=== PATIENT | male | born 1985 ===

== ENCOUNTER 2024-11-15 07:12 | Inpatient (IN) | payer OTHER, SELFPAY ==
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
[2024-11-15 07:32] VITALS: BP 146/96; PULSE 107; RESP 16; TEMP 36.1; O2SAT 96; BMI 33.4
--- NOTE | 2024-11-15 07:33 | MHC.EDTECH ---
Belonging Secured by this tech. There is 1 Patient Belonging bag in Pod locker #9
[2024-11-15 08:12] LABS: Appearance Urine Clear; Glucose Urine UA Negative (Negative); PH 5.5 (5.0-9.0); Specific Gravity - Urine 1.025 (1.005-1.025)
[2024-11-15 08:23] LABS: Cannabinoid Screen Urine Not Detected (Not Detect)
[2024-11-15 08:40] LABS: MANUAL DIFF FLAG NO
[2024-11-15 08:42] LABS: Hematocrit 46.0 % (42.0-52.0); Hemoglobin 16.4 g/dl (14.0-18.0); Imm Gran Abs Auto 0.05 X10*3/uL (0.00-0.03); Imm Gran Pct Auto 0.7 % (0.0-0.4); Lymphocytes Absolute Auto 2.2 X10*3/uL (1.2-4.9); Mean Corpuscular HGB Conc 35.7 g/dl (31.0-36.0); Mean Corpuscular Hemoglobin 30.7 pg (27.0-33.0); Mean Corpuscular Volume 86.0 fL (80.0-98.0); NRBC Abs Auto 0.000 X10*3/uL (0.0-0.012); NRBC Pct Auto 0.0 /100WBC (0.0-0.2); Platelet Count 321 X10*3/uL (160-400); Red Blood Count 5.35 X10*6/uL (4.60-5.80); White Blood Count 7.1 X10*3/uL (4.8-10.8)
[2024-11-15 09:02] LABS: Alanine Aminotransferase 68 U/L (0-40); Albumin Level 4.8 g/dL (3.5-5.0); Alkaline Phosphatase 77 U/L (39-117); Anion Gap 18 (12-20); Aspartate Amino Transferase 41 U/L (5-37); Blood Urea Nitrogen 14 mg/dL (9-16); Calcium 9.0 mg/dL (8.4-10.2); Carbon Dioxide 24 mmol/L (22-29); Chloride 106 mmol/L (96-108); Creatinine Clr Calc Pharmacy 109.1; Estimated Glomerular Filt Rate > 60; Potassium 3.9 mmol/L (3.3-5.1); Sodium 144 mmol/L (135-145); Total Protein 7.6 g/dL (6.5-8.0)
--- NOTE | 2024-11-15 09:19 | MHC.CARE ---
Pt meets the criteria for IPLOC and is on a Section 12a. Pt is voluntary for TX however. ED provider in agreement.
--- NOTE | 2024-11-15 09:40 | ECG_ITS ---
Test Reason : CHECK PROLONGED QT Blood Pressure : */* mmHG Vent. Rate : 90 BPM Atrial Rate : 90 BPM P-R Int : 168 ms QRS Dur : 94 ms QT Int : 358 ms P-R-T Axes : 49 -22 7 degrees QTcB Int : 437 ms Normal sinus rhythm Normal ECG No previous ECGs available Referred By: Suyapa Squires Electronically Signed By: ZHANE ALEXANDER MD
--- NOTE | 2024-11-15 11:43 | PC.NURSE ---
Called [facility] pharmacy in [place], [place] on [address] they are having problems with their phones left message for a call back.
--- NOTE | 2024-11-15 13:08 | PC.NURSE ---
Patient is still nauseas junior BARAHONA ordered benadryl and reglan. Zofran given earlier
[2024-11-15 14:16] VITALS: BP 134/89; PULSE 108; RESP 16; TEMP 36.2; O2SAT 95; BMI 31.3
--- NOTE | 2024-11-15 14:57 | P.CONHOSP_ITS ---
History of Present Illness Data of Consult Service Date: 11/15/24 Primary Care Provider: None Physician HPI Reason for consult: Medical management 39-year-old male with a past medical history of depression presented to the ED with suicidal ideation with plans to hang himself with a belt. Now admitted here for further care and treatment. He denies any significant past medical history. His blood work was within normal limits, no electrolyte imbalances no evidence of kidney or liver injury, no leukocytosis, no anemia. Urine without evidence of infection, tox screen negative. Patient admits to drinking a pt of liquor prior to ED visit, his alcohol level was 262. On exam he has no medical concerns. Review of Systems 2 Review of Systems: Denies any shortness of breath, chest pain, palpitations, dizziness, lightheadedness, headaches, dysuria, abdominal pain or discomfort, nausea, vomiting or diarrhea. PMFSH Social History Patient Tobacco Use Status: Never used Tobacco Advance Directives: No Advance Directives Information Provided: Yes Nutrition Risks: No Nutritional Risk Meds Allergies Allergy/AdvReac Type Severity Reaction Status Date / Time No Known Allergies Allergy Verified 11/15/24 07:38 Active Medications: Current Medications Acetaminophen (Acetaminophen 325 Mg Tablet) 650 mg PO Q6H PRN PRN Reason: Headache/Pain, Scale 1-10 Al Hydroxide/Mg Hydroxide (Magnesium Hydrox/Alum Hydrox 30 Ml Oral.Susp) 30 ml PO Q6H PRN PRN Reason: Heartburn/Nausea Hydroxyzine HCl (Hydroxyzine Hcl 25 Mg Tablet) 25 mg PO Q6H PRN PRN Reason: mild anxiety Lorazepam (Lorazepam 1 Mg Tablet) 1 mg PO Q2H PRN PRN Reason: CIWA 8-11 Lorazepam (Lorazepam 1 Mg Tablet) 2 mg PO Q2H PRN PRN Reason: CIWA 12-15 Lorazepam (Lorazepam 1 Mg Tablet) 3 mg PO Q2H PRN PRN Reason: CIWA > 15, and call Magnesium Hydroxide (Milk Of Magnesia 30 Ml Oral.Susp) 30 ml PO DAILY PRN PRN Reason: Constipation Nicotine Polacrilex (Nicotine Polacrilex 2 Mg Gum) 4 mg BUCCAL Q2H PRN PRN Reason: Nicotine Cravings Thiamine HCl (Thiamine Hcl 100 Mg Tablet) 100 mg PO DAILY AILYN Trazodone HCl (Trazodone Hcl 50 Mg Tablet) 50 mg PO BEDTIME MRX1 PRN PRN Reason: Insomnia Home Medications ?Medication ?Instructions ?Recorded ?Confirmed ?Last Taken ?Type Wellbutrin XL 300 mg PO 11/15/24 Unknown History Physical Exam 2 Vital Signs and Narrative: Vital Signs: Last Vital Signs Temp 97.1 F 11/15/24 14:16 Pulse 108 H 11/15/24 14:16 Resp 16 11/15/24 14:16 BP 134/89 11/15/24 14:16 Pulse Ox 95 11/15/24 14:16 O2 Del Method Room Air 11/15/24 14:16 BMI result Body Mass Index 31.3 CONST: Alert and oriented, in NAD. Well nourished HEENT: Normocephalic, atraumatic, MMM, Eyes clear, Neck supple RESP: Lungs clear, RRR even and regular HEART:,RRR, S1, S2. No edema GI:Abdomen Soft NT, ND. + BS times four :Deferred SKIN: Warm dry and intact, no visible lesions or rashes NEURO:CN II-XII Intact bilaterally, Sensation intact. Speech clear PSYCH: Normal affect Results Labs 11/15/24 08:36 11/15/24 08:36 Labs: Laboratory Results - last 24 hr 11/15/24 11/15/24 08:00 08:36 MCV 86.0 MCH 30.7 MCHC 35.7 RDW 12.6 Plt Count 321 MPV 9.0 L Immature Gran % (Auto) 0.7 H Neut % (Auto) 59.1 Lymph % (Auto) 31.2 [place] % (Auto) 7.7 Eos % (Auto) 0.6 Baso % (Auto) 0.7 Lymph # (Auto) 2.2 [place] # (Auto) 0.6 Eos # (Auto) 0.0 Baso # (Auto) 0.1 Abs Immat Gran (auto) 0.05 H Absolute Neuts (auto) 4.2 Absolute Nucleated RBC 0.000 Nucleated RBC % (auto) 0.0 Anion Gap 18 Estim Creat Clear Calc 109.1 Estimated GFR > 60 Random Glucose 117 H Calcium 9.0 Total Bilirubin 0.4 AST 41 H ALT 68 H Alkaline Phosphatase 77 Total Protein 7.6 Albumin 4.8 Urine Color Yellow Urine Appearance Clear Urine pH 5.5 Ur Specific [place] 1.025 Urine Protein Trace Urine Glucose (UA) Negative Urine Ketones Trace Urine Blood Negative Urine Nitrite Negative Ur Leukocyte Esterase Negative Urine Opiates Screen Not Detected Ur Buprenorphine Scrn Not Detected Ur Oxycodone Screen Not Detected Urine Methadone Screen Not Detected Urine Fentanyl Screen Not Detected Ur Barbiturates Screen Not Detected Ur Phencyclidine Scrn Not Detected Ur Amphetamines Screen Not Detected U Benzodiazepines Scrn Not Detected Urine Cocaine Screen Not Detected U Marijuana (THC) Screen Not Detected Ethyl Alcohol 262 Assessment and Plan (1) Suicidal ideation: Status: Acute Plan 39-year-old male with no significant past medical history presented to the ED with increased depression and plans to hang himself with a belt. He is admitted here for mood stabilization Depression with suicidal ideation Treatment per psychiatric team Thank you for allowing me to participate in the care of this patient. Will follow as needed, please notify medical provider with any changes in condition or concerns.
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
[2024-11-15 20:00] VITALS: BP 135/74; PULSE 114; RESP 16; TEMP 37.3; O2SAT 95
[2024-11-16 07:00] VITALS: BMI 31.3
[2024-11-16 07:20] VITALS: BP 120/90; PULSE 103; RESP 16; TEMP 36.2; O2SAT 96
[2024-11-16 08:00] VITALS: BP 120/90; PULSE 103; RESP 16; TEMP 36.2; O2SAT 98
[2024-11-16 08:18] LABS: Alanine Aminotransferase 70 U/L (0-40); Albumin Level 4.9 g/dL (3.5-5.0); Alkaline Phosphatase 83 U/L (39-117); Anion Gap 15 (12-20); Aspartate Amino Transferase 51 U/L (5-37); Blood Urea Nitrogen 15 mg/dL (9-16); Calcium 9.8 mg/dL (8.4-10.2); Carbon Dioxide 28 mmol/L (22-29); Chloride 102 mmol/L (96-108); Cholesterol 134 mg/dL (<200); Creatinine Clr Calc Pharmacy 101.7; Estimated Glomerular Filt Rate > 60; HDL Cholesterol 35 mg/dL (>40); Potassium 3.9 mmol/L (3.3-5.1); Sodium 141 mmol/L (135-145); Total Protein 7.8 g/dL (6.5-8.0); Triglycerides 287 mg/dL (<150)
[2024-11-16 08:19] LABS: Hemoglobin A1C 148.9463 umol/L; Total Hemoglobin (HGBA1C) 4347.8968 umol/L
--- NOTE | 2024-11-16 08:50 | HO.PSYADMNOT ---
HPI Date of Service: 11/16/24 Chief Complaint: SI Sources of Information: patient interviewed, chart reviewed and crisis/core team assessment reviewed HPI Subjective Notes: Herrera Warning and Conditional Voluntary Narrative: Patient is a 30-year-old male with history of MDD who self presented to ER due to suicidal ideation with a plan to hang himself secondary to increased depression. Per crisis report, patient self presented to ER with his mother. He endorsed suicidal ideation with a plan to hang himself with a belt. Denied HI/VH/AH. He reports 1 prior psychiatric admission in 2017 when he had thoughts of self-harm. History of 2 prior suicide attempts via hanging in 2013 and 2015. He reports he did not tell anyone to receive treatment at that time. Patient reports he stopped taking Wellbutrin 2 days ago and also had a break-up with his girlfriend this morning. He does not identify either of those as precipitants. He reports sleep and appetite are fair. Patient has therapist via telehealth through [employer]. He does not have a medication prescriber. Denies history of PHP admissions. He reports alcohol consumption has been increased recently and has been working with his therapist on this. He denies any other substance use. During admission assessment, patient presents alert and oriented x3. Calm and cooperative. Patient reports feeling depressed; patient stated, I have a general feeling of giving up and not wanting to continue. I was considering killing myself so I came to get help . Patient reports there was no specific trigger that he can think of. He currently denies SI/HI/VH/AH. He reports feeling indifferent about his recent break-up does not feel like this was a precipitant. Patient reports history of 1 prior inpatient psychiatric hospitalization in 2017. He does not have outpatient psychiatric prescriber; however he does have a therapist via telehealth. Patient reports history of taking Wellbutrin and believes it was beneficial. He reports he has not taken it in months due to losing insurance and he was starting to feel better. Patient is requesting to be restarted on Wellbutrin. He reports poor appetite. Patient reports he has been drinking a pt of alcohol for the last 3 days. Denies any other substance use. Alcohol level 262 on arrival. U tox negative for any other substance. Past Psychiatric History: He reports 1 prior psychiatric admission in 2017 when he had thoughts of self-harm. History of 2 prior suicide attempts via hanging in 2013 and 2015. He reports he did not tell anyone to receive treatment at that time. Does not have outpatient psychiatric prescriber. Therapist via telehealth. History of taking Wellbutrin. History of SIB via cutting in 2017. Medical Evaluation Reviewed: Yes PMFSH Family History: Mother: Depression Social History: Lives with ex-. . Two kids(12, 9 y/o). Some college. Works full-time in manufacturing. Substance History: Patient reports drinking a pt of alcohol daily for the last 3 days. Denies any other substance use. Trauma History: Yes Diagnostics Vital Signs (24Hr): Vital Signs - 24 hr 11/15/24 14:16 11/15/24 20:00 11/16/24 07:20 Temperature 97.1 F 99.2 F 97.2 F Pulse Rate 108 H 114 H 103 H Respiratory Rate 16 16 16 Blood Pressure 134/89 135/74 120/90 H Pulse Oximetry 95 95 96 Oxygen Delivery Method Room Air Room Air Room Air 11/16/24 08:00 Temperature 97.2 F Pulse Rate 103 H Respiratory Rate 16 Blood Pressure 120/90 H Pulse Oximetry 98 Oxygen Delivery Method Room Air BMI result Body Mass Index 31.3 Labs 11/15/24 08:36 11/16/24 07:32 Labs: Laboratory Results - last 48 hr 11/15/24 11/15/24 11/16/24 08:00 08:36 07:32 WBC 7.1 RBC 5.35 Hgb 16.4 Hct 46.0 MCV 86.0 MCH 30.7 MCHC 35.7 RDW 12.6 Plt Count 321 MPV 9.0 L Immature Gran % (Auto) 0.7 H Neut % (Auto) 59.1 Lymph % (Auto) 31.2 [place] % (Auto) 7.7 Eos % (Auto) 0.6 Baso % (Auto) 0.7 Lymph # (Auto) 2.2 [place] # (Auto) 0.6 Eos # (Auto) 0.0 Baso # (Auto) 0.1 Abs Immat Gran (auto) 0.05 H Absolute Neuts (auto) 4.2 Absolute Nucleated RBC 0.000 Nucleated RBC % (auto) 0.0 Sodium 144 141 Potassium 3.9 3.9 Chloride 106 102 Carbon Dioxide 24 28 Anion Gap 18 15 BUN 14 15 Creatinine 1.04 1.08 Estim Creat Clear Calc 109.1 101.7 Estimated GFR > 60 > 60 Random Glucose 117 H 112 Estimat Average Glucose 105 Hemoglobin A1c % 5.3 Calcium 9.0 9.8 D Total Bilirubin 0.4 1.3 H AST 41 H 51 H ALT 68 H 70 H Alkaline Phosphatase 77 83 Total Protein 7.6 7.8 Albumin 4.8 4.9 Triglycerides 287 H Cholesterol 134 LDL Cholesterol, Calc 42 HDL Cholesterol 35 L Urine Color Yellow Urine Appearance Clear Urine pH 5.5 Ur Specific [place] 1.025 Urine Protein Trace Urine Glucose (UA) Negative Urine Ketones Trace Urine Blood Negative Urine Nitrite Negative Ur Leukocyte Esterase Negative Urine Opiates Screen Not Detected Ur Buprenorphine Scrn Not Detected Ur Oxycodone Screen Not Detected Urine Methadone Screen Not Detected Urine Fentanyl Screen Not Detected Ur Barbiturates Screen Not Detected Ur Phencyclidine Scrn Not Detected Ur Amphetamines Screen Not Detected U Benzodiazepines Scrn Not Detected Urine Cocaine Screen Not Detected U Marijuana (THC) Screen Not Detected Ethyl Alcohol 262 Meds/Allergies Meds Home Medications ?Medication ?Instructions ?Recorded ?Confirmed ?Type Wellbutrin XL 300 mg PO DAILY 11/15/24 11/16/24 History Allergies Allergies Allergy/AdvReac Type Severity Reaction Status Date / Time No Known Allergies Allergy Verified 11/15/24 07:38 Mental Status Exam Mental Status Exam Patient Appearance: Well Grooomed Patient Orientation: Person, Place, Time and Situation Level of Consciousness: Awake and Alert Patient Behavior: Appropriate, Cooperative and Good Eye Contact Mood Description: Depressed Affect Description: Calm Ability to Follow Directions: Good Speech Pattern: Clear Memory Description: Intact Hallucinations: None Delusions: Not Present Thought Process: Intact and Goal Oriented Thought Content: positive for Intact Assessment & Plan Assessment & Plan (1) MDD (major depressive disorder), recurrent episode: Status: Acute Code(s): F33.9 - Major depressive disorder, recurrent, unspecified (2) PTSD (post-traumatic stress disorder): Status: Acute Code(s): F43.10 - Post-traumatic stress disorder, unspecified (3) Alcohol use disorder: Status: Acute Code(s): F10.90 - Alcohol use, unspecified, uncomplicated Plan Patient is a 30-year-old male with history of MDD who self presented to ER due to suicidal ideation with a plan to hang himself secondary to increased depression. Plan: CV 15 minute safety checks CIWA protocol Obtain collateral Start: Wellbutrin XL 150mg PO daily Referral to outpatient prescriber Encourage groups Discharge planning Patient educated on: diagnosis and medication risk/benefits Reason for continued inpatient stay Substantial Risk for: med/psych decompensation Statement Statement: I have reviewed the history and physical and performed a pertinent examination on my patient. No changes have occurred unless specified. If the History and Physical was not performed prior to admission, the Hospitalist's service will be consulted for completing the admission physical. Time Spent With Patient Time: Total time managing care of this patient today _60___ minutes.
[2024-11-16] MEDS: Flu Vacc TS2025-26(6mo up)/PF 0.5 ML SYRINGE IM (11:18)
[2024-11-16] MEDS: buPROPion HCl XL 150 MG TAB.ER.24H PO (16:37)
[2024-11-16 16:39] VITALS: BP 125/88; PULSE 99
[2024-11-16 20:00] VITALS: BP 141/84; PULSE 93; RESP 16; TEMP 37; O2SAT 95
[2024-11-17 07:48] VITALS: BP 145/97; PULSE 87; RESP 20; TEMP 36.2; O2SAT 99
[2024-11-17] MEDS: buPROPion HCl XL 150 MG TAB.ER.24H PO (08:24)
--- NOTE | 2024-11-17 08:34 | HO.PSYCHPN ---
Subjective Subjective Date of Service: 11/17/24 Reason For Visit: SI Subjective Notes: Conditional Voluntary Interim History: Active on unit. social with peers. attending groups. KELSEA SAUNDERS'ghassan; pt denies withdrawal symptoms. Patient reports feeling more anxious than depressed today; pt stated, the suicidal thoughts went away this morning. I miss being home . denies SI/HI/VH/AH. Per nursing, slept 7 hours last night. Continue tx plan. Medication Compliance: Yes Side effects from medications: No Attending Groups: Yes Mental Status Exam Mental Status Exam Narrative: Pt is alert and oriented; behavior is cooperative and calm; dressed in casual attire; mood is described as anxious ; eye contact appropriate; Speech is normal rate, volume and not pressured; thought process is organized; Thought content is on tx; denies SI/HI/VH/AH. Diagnostics Vital Signs (24Hr): Vital Signs - 24 hr 11/16/24 16:39 11/16/24 20:00 11/17/24 07:48 Temperature 98.6 F 97.2 F Pulse Rate 99 93 87 Respiratory Rate 16 20 Blood Pressure 125/88 141/84 H 145/97 H Pulse Oximetry 95 99 Oxygen Delivery Method Room Air Room Air BMI result Body Mass Index 31.3 Labs 11/15/24 08:36 11/16/24 07:32 Labs: Laboratory Results - last 48 hr 11/15/24 11/16/24 08:36 07:32 WBC 7.1 RBC 5.35 Hgb 16.4 Hct 46.0 MCV 86.0 MCH 30.7 MCHC 35.7 RDW 12.6 Plt Count 321 MPV 9.0 L Immature Gran % (Auto) 0.7 H Neut % (Auto) 59.1 Lymph % (Auto) 31.2 [place] % (Auto) 7.7 Eos % (Auto) 0.6 Baso % (Auto) 0.7 Lymph # (Auto) 2.2 [place] # (Auto) 0.6 Eos # (Auto) 0.0 Baso # (Auto) 0.1 Abs Immat Gran (auto) 0.05 H Absolute Neuts (auto) 4.2 Absolute Nucleated RBC 0.000 Nucleated RBC % (auto) 0.0 Sodium 144 141 Potassium 3.9 3.9 Chloride 106 102 Carbon Dioxide 24 28 Anion Gap 18 15 BUN 14 15 Creatinine 1.04 1.08 Estim Creat Clear Calc 109.1 101.7 Estimated GFR > 60 > 60 Random Glucose 117 H 112 Estimat Average Glucose 105 Hemoglobin A1c % 5.3 Calcium 9.0 9.8 D Total Bilirubin 0.4 1.3 H AST 41 H 51 H ALT 68 H 70 H Alkaline Phosphatase 77 83 Total Protein 7.6 7.8 Albumin 4.8 4.9 Triglycerides 287 H Cholesterol 134 LDL Cholesterol, Calc 42 HDL Cholesterol 35 L Ethyl Alcohol 262 Medications Medications Current Medications Acetaminophen (Acetaminophen 325 Mg Tablet) 650 mg PO Q6H PRN PRN Reason: Headache/Pain, Scale 1-10 Al Hydroxide/Mg Hydroxide (Magnesium Hydrox/Alum Hydrox 30 Ml Oral.Susp) 30 ml PO Q6H PRN PRN Reason: Heartburn/Nausea Bupropion HCl (Bupropion Hcl Xl 150 Mg Tab.Er.24h) 150 mg PO DAILY [facility] Last Admin: 11/17/24 08:24 Dose: 150 mg Hydroxyzine HCl (Hydroxyzine Hcl 25 Mg Tablet) 25 mg PO Q6H PRN PRN Reason: mild anxiety Lorazepam (Lorazepam 1 Mg Tablet) 1 mg PO Q2H PRN PRN Reason: CIWA 8-11 Last Admin: 11/16/24 08:58 Dose: 1 mg Lorazepam (Lorazepam 1 Mg Tablet) 2 mg PO Q2H PRN PRN Reason: CIWA 12-15 Lorazepam (Lorazepam 1 Mg Tablet) 3 mg PO Q2H PRN PRN Reason: CIWA > 15, and call Magnesium Hydroxide (Milk Of Magnesia 30 Ml Oral.Susp) 30 ml PO DAILY PRN PRN Reason: Constipation Nicotine Polacrilex (Nicotine Polacrilex 2 Mg Gum) 4 mg BUCCAL Q2H PRN PRN Reason: Nicotine Cravings Thiamine HCl (Thiamine Hcl 100 Mg Tablet) 100 mg PO DAILY [facility] Last Admin: 11/17/24 08:24 Dose: 100 mg Trazodone HCl (Trazodone Hcl 50 Mg Tablet) 50 mg PO BEDTIME MRX1 PRN PRN Reason: Insomnia Last Admin: 11/15/24 20:54 Dose: 50 mg Allergies Allergies Allergy/AdvReac Type Severity Reaction Status Date / Time No Known Allergies Allergy Verified 11/15/24 07:38 Assessment & Plan Assessment & Plan (1) MDD (major depressive disorder), recurrent episode: Status: Acute Code(s): F33.9 - Major depressive disorder, recurrent, unspecified (2) PTSD (post-traumatic stress disorder): Status: Acute Code(s): F43.10 - Post-traumatic stress disorder, unspecified (3) Alcohol use disorder: Status: Acute Code(s): F10.90 - Alcohol use, unspecified, uncomplicated Plan Patient is a 30-year-old male with history of MDD who self presented to ER due to suicidal ideation with a plan to hang himself secondary to increased depression. Plan: CV 15 minute safety checks CIWA protocol Obtain collateral Start: Wellbutrin XL 150mg PO daily Referral to outpatient prescriber Encourage groups Discharge planning 11/17: Active on unit. social with peers. attending groups. CIWA DC'd; pt denies withdrawal symptoms. Patient reports feeling more anxious than depressed today; pt stated, the suicidal thoughts went away this morning. I miss being home . denies SI/HI/VH/AH. Per nursing, slept 7 hours last night. Continue tx plan. Patient educated on: diagnosis, medication risk/benefits and therapeutic strategies Reason for continued inpatient stay Substantial Risk for: med/psych decompensation Time Spent With Patient Time: Total time managing care of this patient today _20___ minutes.
--- NOTE | 2024-11-17 14:27 | MHC.CLN ---
CONSULT REPORTS 10# WEIGHT LOSS X ONE WEEK DUE TO DECREASED APPETITE. PATIENT WITH SI PLUS ETOH UPON ADM. NO PRIOR WEIGHT HX VIEWED. DIET RX REGULAR. BMI=31.4, OBESE. NO ADDITIONAL NUTRITION INTERVENTIONS AT THIS TIME. PLEASE CONSULT RD IF PATIENT WITH POOR PO DURING ADM.
--- NOTE | 2024-11-17 14:29 | MHC.RECOVRN ---
Pt is 39-y/o male who presented to the ED reporting SI worsened by recent alcohol binge. CARE Team was consulted and pt was determined to be inpatient psych level of care. Pt thus was admitted to M3 for further management. Met with pt in 324 after receiving an addiction consult for + [facility] C to discuss alcohol use and recovery supports & options. Upon approach pt is calm w/flat affect, oriented and cooperative. Speech is coherent & thought process is logical. Pt stated he typically only consumes alcohol on the weekends 2-3 drinks. However due to no apparent reason pt had a recent binge from Wednesday --> Wednesday where he drank 1 pint of vodka or rum QD. No precipitating triggers identified as pt was unable to recall any recent stressors. Pt added that due to the binge drinking I started feeling suicidal. When asked about withdrawal symptoms pt denied a hx of seizures or delirium tremens. No acute withdrawal noted or reported at this time. Pt reports feeling anxious at baseline. Pt denied hx of AUD or JIM-related treatment. During the assessment low-risk drinking guidelines were reviewed. Discussed harm-reduction strategies such as setting a personal limit of no more than 2 drinks per occasion, alternating alcohol with water, pacing intake, and eating food prior to an during drinking. Pt acknowledged the medical risks of heavy or daily use as well as its impact to poor mental health outcomes. Written materials provided & reviewed with pt such as information on nutrition, hydration, and vitamin supplementation. Based on motivational interviewing, pt is open to recommendations and interested in harm reduction rather than immediate abstinence. Treatment options were discussed including SOREN, and inpatient & outpatient treatment (ATS, CSS, TSS, IOP). Pt provided with list of facilities providing tx for AUD. Pt showed particular interest in SOREN for harm-reduction and agreed to discuss SOREN initiation with the Addiction Medicine provider. Provider was made aware and outpatient JIM appointment was made at the [facility] for tx. Pt verbalized understanding of risk reduction strategies & tx options. No other questions or concerns offered at this time. Discussed with Pooja Hsieh NP.
--- NOTE | 2024-11-17 14:55 | MHC.RECOVRN ---
Pt is 39-y/o male who presented to the ED reporting SI worsened by recent alcohol binge. CARE Team was consulted and pt was determined to be inpatient psych level of care. Pt thus was admitted to M3 for further management. Met with pt in 324 after receiving an addiction consult for + [facility] C to discuss alcohol use and recovery supports & options. Upon approach pt is calm w/flat affect, oriented and cooperative. Speech is coherent & thought process is logical. Pt stated he typically only consumes alcohol on the weekends 2-3 drinks. However due to no apparent reason pt had a recent binge from Wednesday --> Wednesday where he drank 1 pint of vodka or rum QD. No precipitating triggers identified as pt was unable to recall any recent stressors. Pt added that due to the binge drinking I started feeling suicidal. When asked about withdrawal symptoms pt denied a hx of seizures or delirium tremens. No acute withdrawal noted or reported at this time. Pt reports feeling anxious at baseline. Pt denied hx of AUD or JIM-related treatment. During the assessment low-risk drinking guidelines were reviewed. Discussed harm-reduction strategies such as setting a personal limit of no more than 2 drinks per occasion, alternating alcohol with water, pacing intake, and eating food prior to an during drinking. Pt acknowledged the medical risks of heavy or daily use as well as its impact to poor mental health outcomes. Written materials provided & reviewed with pt such as information on nutrition, hydration, and vitamin supplementation. Based on motivational interviewing, pt is open to recommendations and interested in harm reduction rather than immediate abstinence. Treatment options were discussed including SOREN, and inpatient & outpatient treatment (ATS, CSS, TSS, IOP). Pt provided with list of facilities providing tx for AUD. Pt showed particular interest in SOREN for harm-reduction and agreed to discuss SOREN initiation with the Addiction Medicine provider. Pt verbalized understanding of risk reduction strategies & tx options. No other questions or concerns offered at this time. Discussed with Pooja Hsieh NP.
--- NOTE | 2024-11-17 15:58 | HO.ADDICT_ITS ---
History of Present Illness Date of Service: 11/17/2024 Chief Complaint: SI Reason for Consult: AUD Sources of Information: patient interviewed and chart reviewed HPI Narrative: Patient is a 39 year old male admitted to with suicidal ideation. Consult requested as patient reported increase in drinking. Initially seen by coal briquette machine operator, and at that time expressed interest in SOREN. Patient seen on M3. He is awake, alert, pleasant and engaged in interview. He reports long history of unhealthy drinking, with periods of abstaining in between. He states that most recently he had been drinking approx 6 beers daily after work, and prior to admission had been drinking about a pint of hard alcohol as well. He reports that drinking hard alcohol is not the norm for him and feels it was related to his worsening depression. States that he normally drinks alone at home. Denies any other substance use Reports mild withdrawal sx at admission -since resolved-and feels he has experienced mild withdrawal sx at home in the past Labs reviewed-liver enzymes elevated He reports that he is engaged in therapy, and feels that adding medication for AUD may be beneficial He feels that alcohol has been impacting his mental health overall, and would like to address that. Strong supports with family and friends. Past Psychiatric History: He reports 1 prior psychiatric admission in 2017 when he had thoughts of self-harm. History of 2 prior suicide attempts via hanging in 2013 and 2015. He reports he did not tell anyone to receive treatment at that time. Does not have outpatient psychiatric prescriber. Therapist via telehealth. History of taking Wellbutrin. History of SIB via cutting in 2017. Medical Evaluation Reviewed: Yes Review of Systems Constitutional: Reports as per HPI and Reports no additional constitutional complaints Diagnostics Vital Signs (24Hr): Vital Signs - 24 hr 11/16/24 16:39 11/16/24 20:00 11/17/24 07:48 Temperature 98.6 F 97.2 F Pulse Rate 99 93 87 Respiratory Rate 16 20 Blood Pressure 125/88 141/84 H 145/97 H Pulse Oximetry 95 99 Oxygen Delivery Method Room Air Room Air BMI result Body Mass Index 31.3 Labs 11/15/24 08:36 11/16/24 07:32 Labs: Laboratory Results - last 48 hr 11/16/24 07:32 Sodium 141 Potassium 3.9 Chloride 102 Carbon Dioxide 28 Anion Gap 15 BUN 15 Creatinine 1.08 Estim Creat Clear Calc 101.7 Estimated GFR > 60 Random Glucose 112 Estimat Average Glucose 105 Hemoglobin A1c % 5.3 Calcium 9.8 D Total Bilirubin 1.3 H AST 51 H ALT 70 H Alkaline Phosphatase 83 Total Protein 7.8 Albumin 4.9 Triglycerides 287 H Cholesterol 134 LDL Cholesterol, Calc 42 HDL Cholesterol 35 L Mental Status Exam Mental Status Exam Level of Consciousness: Awake and Appropriate Patient Behavior: Appropriate and Talkative Affect Description: Calm Speech Pattern: Clear Thought Process: Intact Thought Content: positive for Intact Judgement: Good Medications Medications Current Medications Acetaminophen (Acetaminophen 325 Mg Tablet) 650 mg PO Q6H PRN PRN Reason: Headache/Pain, Scale 1-10 Al Hydroxide/Mg Hydroxide (Magnesium Hydrox/Alum Hydrox 30 Ml Oral.Susp) 30 ml PO Q6H PRN PRN Reason: Heartburn/Nausea Bupropion HCl (Bupropion Hcl Xl 150 Mg Tab.Er.24h) 150 mg PO DAILY [facility] Last Admin: 11/17/24 08:24 Dose: 150 mg Hydroxyzine HCl (Hydroxyzine Hcl 25 Mg Tablet) 25 mg PO Q6H PRN PRN Reason: mild anxiety Magnesium Hydroxide (Milk Of Magnesia 30 Ml Oral.Susp) 30 ml PO DAILY PRN PRN Reason: Constipation Naltrexone HCl (Naltrexone Hcl 50 Mg Tablet) 25 mg PO DAILY [facility] Stop: 11/20/24 09:01 Naltrexone HCl (Naltrexone Hcl 50 Mg Tablet) 50 mg PO DAILY [facility] Nicotine Polacrilex (Nicotine Polacrilex 2 Mg Gum) 4 mg BUCCAL Q2H PRN PRN Reason: Nicotine Cravings Trazodone HCl (Trazodone Hcl 50 Mg Tablet) 50 mg PO BEDTIME MRX1 PRN PRN Reason: Insomnia Last Admin: 11/15/24 20:54 Dose: 50 mg Allergies Allergies Allergy/AdvReac Type Severity Reaction Status Date / Time No Known Allergies Allergy Verified 11/15/24 07:38 Assessment & Plan Assessment & Plan (1) Alcohol use disorder: Status: Acute Code(s): F10.90 - Alcohol use, unspecified, uncomplicated Assessment and Plan: * naltrexone 25mgx3 days then increase to 50mg QD. Discussed dosing, possible side effects and goals of treatment * has not seen PCP in some time, so may benefit from referral to [facility] (if open to it) to continue SOREN * coal briquette machine operator to check in on Wednesday Total time managing care of this patient today _30___ minutes. [facility] Social History Social History Household Members: None Housing: House Do you presently have visiting nurse or other home services: No Patient Tobacco Use Status: Never used Tobacco Currently Displaying Signs/Symptoms of Drug Intoxication Withdrawal: No Have you been hit, kicked, punched, or otherwise hurt by someone within the past year? If so, by whom?: No Do you feel safe in your current relationship?: No Current Relationship Is there a partner from a previous relationship who is making you feel unsafe now?: No Are you made to feel afraid or neglected: No Advance Directives: No Advance Directives Information Provided: Yes Do you have thoughts of harming others: None Do you have a plan to hurt others: No Plan Recently lost weight without trying: Yes How much weight loss: 2-13 pounds Eating poorly because of decreased appetite: Yes Nutrition screen score: 4 Nutrition Risks: No Nutritional Risk Poor oral hygiene: No service: No Sexual orientation: Straight/Heterosexual
[2024-11-17 21:20] VITALS: BP 136/88; PULSE 89; RESP 18; TEMP 36.8; O2SAT 97
[2024-11-18 08:19] VITALS: BP 134/86; PULSE 83; RESP 18; TEMP 36.2; O2SAT 98
[2024-11-18] MEDS: buPROPion HCl XL 150 MG TAB.ER.24H PO (08:21)
--- NOTE | 2024-11-18 10:58 | P.PNPSI_ITS ---
Subjective Subjective Date of Service: 11/18/24 Reason For Visit: SI Interim History: Patient was seen and discussed in rounds today. Records and plans were reviewed. He has been stable, social and engaged. CIWA was discontinued yesterday and he appears to be doing well. He states that he is not sleeping well and I increased his trazodone to 100 mg. No SI. No AVH. No other changes were made today Review of Systems Review of Systems Sleep Yes all other systems are reviewed and are negative Mental Status Exam Mental Status Exam Narrative: In today's visit he is alert, oriented and pleasant. Normal speech. Good eye contact. Affect is appropriate and open. No signs of acute psychosis. No AVH. No SI. Cognitively intact. Judgment intact Diagnostics Vital Signs (24Hr): Vital Signs - 24 hr 11/17/24 21:20 11/18/24 08:19 Temperature 98.2 F 97.2 F Pulse Rate 89 83 Respiratory Rate 18 18 Blood Pressure 136/88 134/86 Pulse Oximetry 97 98 Oxygen Delivery Method Room Air Room Air BMI result Body Mass Index 31.3 Labs 11/15/24 08:36 11/16/24 07:32 Medications Medications Current Medications Acetaminophen (Acetaminophen 325 Mg Tablet) 650 mg PO Q6H PRN PRN Reason: Headache/Pain, Scale 1-10 Al Hydroxide/Mg Hydroxide (Magnesium Hydrox/Alum Hydrox 30 Ml Oral.Susp) 30 ml PO Q6H PRN PRN Reason: Heartburn/Nausea Bupropion HCl (Bupropion Hcl Xl 150 Mg Tab.Er.24h) 150 mg PO DAILY ON LICENSE OF [facility] Last Admin: 11/18/24 08:21 Dose: 150 mg Hydroxyzine HCl (Hydroxyzine Hcl 25 Mg Tablet) 25 mg PO Q6H PRN PRN Reason: mild anxiety Magnesium Hydroxide (Milk Of Magnesia 30 Ml Oral.Susp) 30 ml PO DAILY PRN PRN Reason: Constipation Naltrexone HCl (Naltrexone Hcl 50 Mg Tablet) 25 mg PO DAILY ON LICENSE OF [facility] Stop: 11/20/24 09:01 Last Admin: 11/18/24 08:22 Dose: 25 mg Naltrexone HCl (Naltrexone Hcl 50 Mg Tablet) 50 mg PO DAILY ON LICENSE OF [facility] Nicotine Polacrilex (Nicotine Polacrilex 2 Mg Gum) 4 mg BUCCAL Q2H PRN PRN Reason: Nicotine Cravings Trazodone HCl (Trazodone Hcl 50 Mg Tablet) 50 mg PO BEDTIME MRX1 PRN PRN Reason: Insomnia Last Admin: 11/17/24 21:21 Dose: 50 mg Allergies Allergies Allergy/AdvReac Type Severity Reaction Status Date / Time No Known Allergies Allergy Verified 11/15/24 07:38 Assessment & Plan Assessment & Plan (1) Alcohol use disorder: Status: Acute Code(s): F10.90 - Alcohol use, unspecified, uncomplicated Assessment and Plan: * naltrexone 25mgx3 days then increase to 50mg QD. Discussed dosing, possible side effects and goals of treatment * has not seen PCP in some time, so may benefit from referral to [facility] (if open to it) to continue SOREN * burglar alarm inspector to check in on Wednesday * * 11/18: Continue current regimen and plans. Increase trazodone to 100 mg Patient educated on: medication risk/benefits Reason for continued inpatient stay Substantial Risk for: med/psych decompensation Time Spent With Patient Time: Total time managing care of this patient today ____ minutes.
[2024-11-18 19:15] VITALS: BP 133/93; PULSE 87; RESP 16; TEMP 36.3; O2SAT 98
[2024-11-18 21:00] VITALS: BP 137/91; PULSE 82
[2024-11-19 07:53] VITALS: BP 119/73; PULSE 83; RESP 18; TEMP 36.3; O2SAT 97
[2024-11-19] MEDS: buPROPion HCl XL 150 MG TAB.ER.24H PO (07:55)
--- NOTE | 2024-11-19 08:12 | P.PNPSI_ITS ---
Subjective Subjective Date of Service: 11/19/24 Reason For Visit: SI Subjective Notes: Conditional Voluntary Interim History: Patient was seen and discussed in rounds today. Records and plans were reviewed. He is doing fairly well and has been social and interactive. Today was sitting at a table, reading a book. Eating and sleeping adequately. No complaints or side effects. No SI. Slept better with the increase of trazodone. No changes were made today Review of Systems Review of Systems Yes all other systems are reviewed and are negative Mental Status Exam Mental Status Exam Narrative: In today's visit he is alert, oriented and pleasant. Normal speech. Good eye contact. Affect is appropriate and constricted. No signs of acute psychosis. No AVH. He is able to move all limbs. No gait abnormalities. No SI. Cognitively intact. Judgment intact Diagnostics Vital Signs (24Hr): Vital Signs - 24 hr 11/18/24 08:19 11/18/24 19:15 11/18/24 21:00 Temperature 97.2 F 97.4 F Pulse Rate 83 87 82 Respiratory Rate 18 16 Blood Pressure 134/86 133/93 H 137/91 H Pulse Oximetry 98 98 Oxygen Delivery Method Room Air Room Air 11/19/24 07:53 Temperature 97.4 F Pulse Rate 83 Respiratory Rate 18 Blood Pressure 119/73 Pulse Oximetry 97 Oxygen Delivery Method Room Air BMI result Body Mass Index 31.3 Labs 11/15/24 08:36 11/16/24 07:32 Medications Medications Current Medications Acetaminophen (Acetaminophen 325 Mg Tablet) 650 mg PO Q6H PRN PRN Reason: Headache/Pain, Scale 1-10 Al Hydroxide/Mg Hydroxide (Magnesium Hydrox/Alum Hydrox 30 Ml Oral.Susp) 30 ml PO Q6H PRN PRN Reason: Heartburn/Nausea Bupropion HCl (Bupropion Hcl Xl 150 Mg Tab.Er.24h) 150 mg PO DAILY [facility] Last Admin: 11/19/24 07:55 Dose: 150 mg Hydroxyzine HCl (Hydroxyzine Hcl 25 Mg Tablet) 25 mg PO Q6H PRN PRN Reason: mild anxiety Magnesium Hydroxide (Milk Of Magnesia 30 Ml Oral.Susp) 30 ml PO DAILY PRN PRN Reason: Constipation Naltrexone HCl (Naltrexone Hcl 50 Mg Tablet) 25 mg PO DAILY [facility] Stop: 11/20/24 09:01 Last Admin: 11/19/24 07:55 Dose: 25 mg Naltrexone HCl (Naltrexone Hcl 50 Mg Tablet) 50 mg PO DAILY [facility] Nicotine Polacrilex (Nicotine Polacrilex 2 Mg Gum) 4 mg BUCCAL Q2H PRN PRN Reason: Nicotine Cravings Trazodone HCl (Trazodone Hcl 100 Mg Tablet) 100 mg PO BEDTIME MRX1 PRN PRN Reason: Insomnia Last Admin: 11/18/24 21:32 Dose: 100 mg Allergies Allergies Allergy/AdvReac Type Severity Reaction Status Date / Time No Known Allergies Allergy Verified 11/15/24 07:38 Assessment & Plan Assessment & Plan (1) Alcohol use disorder: Status: Acute Code(s): F10.90 - Alcohol use, unspecified, uncomplicated Assessment and Plan: * naltrexone 25mgx3 days then increase to 50mg QD. Discussed dosing, possible side effects and goals of treatment * has not seen PCP in some time, so may benefit from referral to [facility] (if open to it) to continue SOREN * guest room attendant to check in on Wednesday * * 11/18: Continue current regimen and plans. Increase trazodone to 100 mg * 11/19: Continue current regimen and plans Reason for continued inpatient stay Substantial Risk for: med/psych decompensation Time Spent With Patient Time: Total time managing care of this patient today ____ minutes.
[2024-11-19 08:35] VITALS: BP 119/73; PULSE 83; RESP 18; TEMP 36.3; O2SAT 97
--- NOTE | 2024-11-19 10:39 | P.PNPSI_ITS ---
Subjective Subjective Date of Service: 11/19/24 Reason For Visit: SI Subjective Notes: Conditional Voluntary Interim History: Patient was seen and discussed in rounds today. Records and plans were reviewed. He continues to be fairly marginal in the milieu. He is somewhat social. Eating and sleeping adequately. Endorses anxiety and depression. No complaints or side effects. No SI. No changes were made today Review of Systems Review of Systems Yes all other systems are reviewed and are negative Mental Status Exam Mental Status Exam Narrative: In today's visit he is alert, oriented and pleasant. Normal speech. Good eye contact. Affect is appropriate and constricted. No signs of acute psychosis. No AVH. He is able to move all limbs. No gait abnormalities. No SI. Cognitively intact. Judgment intact Diagnostics Vital Signs (24Hr): Vital Signs - 24 hr 11/18/24 19:15 11/18/24 21:00 11/19/24 07:53 Temperature 97.4 F 97.4 F Pulse Rate 87 82 83 Respiratory Rate 16 18 Blood Pressure 133/93 H 137/91 H 119/73 Pulse Oximetry 98 97 Oxygen Delivery Method Room Air Room Air 11/19/24 08:35 Temperature 97.4 F Pulse Rate 83 Respiratory Rate 18 Blood Pressure 119/73 Pulse Oximetry 97 Oxygen Delivery Method Room Air BMI result Body Mass Index 31.3 Labs 11/15/24 08:36 11/16/24 07:32 Medications Medications Current Medications Acetaminophen (Acetaminophen 325 Mg Tablet) 650 mg PO Q6H PRN PRN Reason: Headache/Pain, Scale 1-10 Al Hydroxide/Mg Hydroxide (Magnesium Hydrox/Alum Hydrox 30 Ml Oral.Susp) 30 ml PO Q6H PRN PRN Reason: Heartburn/Nausea Bupropion HCl (Bupropion Hcl Xl 150 Mg Tab.Er.24h) 150 mg PO DAILY [facility] Last Admin: 11/19/24 07:55 Dose: 150 mg Hydroxyzine HCl (Hydroxyzine Hcl 25 Mg Tablet) 25 mg PO Q6H PRN PRN Reason: mild anxiety Magnesium Hydroxide (Milk Of Magnesia 30 Ml Oral.Susp) 30 ml PO DAILY PRN PRN Reason: Constipation Naltrexone HCl (Naltrexone Hcl 50 Mg Tablet) 25 mg PO DAILY [facility] Stop: 11/20/24 09:01 Last Admin: 11/19/24 07:55 Dose: 25 mg Naltrexone HCl (Naltrexone Hcl 50 Mg Tablet) 50 mg PO DAILY [facility] Nicotine Polacrilex (Nicotine Polacrilex 2 Mg Gum) 4 mg BUCCAL Q2H PRN PRN Reason: Nicotine Cravings Trazodone HCl (Trazodone Hcl 100 Mg Tablet) 100 mg PO BEDTIME MRX1 PRN PRN Reason: Insomnia Last Admin: 11/18/24 21:32 Dose: 100 mg Allergies Allergies Allergy/AdvReac Type Severity Reaction Status Date / Time No Known Allergies Allergy Verified 11/15/24 07:38 Assessment & Plan Assessment & Plan (1) Alcohol use disorder: Status: Acute Code(s): F10.90 - Alcohol use, unspecified, uncomplicated Assessment and Plan: * naltrexone 25mgx3 days then increase to 50mg QD. Discussed dosing, possible side effects and goals of treatment * has not seen PCP in some time, so may benefit from referral to [facility] (if open to it) to continue SOREN * underwriter solicitation director to check in on Wednesday * * 11/18: Continue current regimen and plans. Increase trazodone to 100 mg * 11/19: Continue current regimen and plans Reason for continued inpatient stay Substantial Risk for: med/psych decompensation Time Spent With Patient Time: Total time managing care of this patient today ____ minutes.
[2024-11-19 19:50] VITALS: BP 119/80; PULSE 85; RESP 18; TEMP 36.3; O2SAT 97
[2024-11-20 08:00] VITALS: BP 118/67; PULSE 70; RESP 18; TEMP 36.2; O2SAT 99
--- NOTE | 2024-11-20 08:18 | P.PNPSI_ITS ---
Subjective Subjective Date of Service: 11/20/24 Reason For Visit: SI Subjective Notes: Conditional Voluntary Interim History: Patient was seen and discussed in rounds today. Records and plans were reviewed. He had several questions pertaining to his diagnoses which we were able to discuss in general terms. I encouraged him to talk further with his therapist who knows him more to explore. His has been wondering whether he may be bipolar. Be is generally doing better with broader affect. Less anxiety. He is concerned about his work and needing to fill out FMLA forms. He is visible and social. Eating and sleeping adequately Review of Systems Review of Systems Yes all other systems are reviewed and are negative Mental Status Exam Mental Status Exam Narrative: In today's visit he is alert, oriented and pleasant. Normal speech. Good eye contact. Affect is appropriate and constricted. No signs of acute psychosis. No AVH. He is able to move all limbs. No gait abnormalities. No SI. Cognitively intact. Judgment intact Diagnostics Vital Signs (24Hr): Vital Signs - 24 hr 11/19/24 08:35 11/19/24 19:50 11/20/24 08:00 Temperature 97.4 F 97.4 F 97.1 F Pulse Rate 83 85 70 Respiratory Rate 18 18 18 Blood Pressure 119/73 119/80 118/67 Pulse Oximetry 97 97 99 Oxygen Delivery Method Room Air Room Air Room Air BMI result Body Mass Index 31.3 Labs 11/15/24 08:36 11/16/24 07:32 Medications Medications Current Medications Acetaminophen (Acetaminophen 325 Mg Tablet) 650 mg PO Q6H PRN PRN Reason: Headache/Pain, Scale 1-10 Al Hydroxide/Mg Hydroxide (Magnesium Hydrox/Alum Hydrox 30 Ml Oral.Susp) 30 ml PO Q6H PRN PRN Reason: Heartburn/Nausea Bupropion HCl (Bupropion Hcl Xl 150 Mg Tab.Er.24h) 150 mg PO DAILY [facility] Last Admin: 11/19/24 07:55 Dose: 150 mg Hydroxyzine HCl (Hydroxyzine Hcl 25 Mg Tablet) 25 mg PO Q6H PRN PRN Reason: mild anxiety Magnesium Hydroxide (Milk Of Magnesia 30 Ml Oral.Susp) 30 ml PO DAILY PRN PRN Reason: Constipation Naltrexone HCl (Naltrexone Hcl 50 Mg Tablet) 25 mg PO DAILY [facility] Stop: 11/20/24 09:01 Last Admin: 11/19/24 07:55 Dose: 25 mg Naltrexone HCl (Naltrexone Hcl 50 Mg Tablet) 50 mg PO DAILY [facility] Nicotine Polacrilex (Nicotine Polacrilex 2 Mg Gum) 4 mg BUCCAL Q2H PRN PRN Reason: Nicotine Cravings Trazodone HCl (Trazodone Hcl 100 Mg Tablet) 100 mg PO BEDTIME MRX1 PRN PRN Reason: Insomnia Last Admin: 11/19/24 22:17 Dose: 100 mg Allergies Allergies Allergy/AdvReac Type Severity Reaction Status Date / Time No Known Allergies Allergy Verified 11/15/24 07:38 Assessment & Plan Assessment & Plan (1) Alcohol use disorder: Status: Acute Code(s): F10.90 - Alcohol use, unspecified, uncomplicated Assessment and Plan: * naltrexone 25mgx3 days then increase to 50mg QD. Discussed dosing, possible side effects and goals of treatment * has not seen PCP in some time, so may benefit from referral to [facility] (if open to it) to continue SOREN * dynamometer tester to check in on Wednesday * * 11/18: Continue current regimen and plans. Increase trazodone to 100 mg * 11/19: Continue current regimen and plans * 11/20: Continue current regimen and plans. Reason for continued inpatient stay Substantial Risk for: med/psych decompensation Time Spent With Patient Time: Total time managing care of this patient today ____ minutes.
[2024-11-20] MEDS: buPROPion HCl XL 150 MG TAB.ER.24H PO (08:46)
--- NOTE | 2024-11-20 13:26 | MHC.RECOVRN ---
T/W met with pt in meeting room to f/u re: starting Naltrexone and also offer additional education/resources. Pt A&O and cooperative during interaction. Education provided on neurobiology of addiction and multiple resources needed and available to achieve goals. Pt denies any SE from Naltrexone. Pt requesting F/U with [facility] for ongoing Naltrexone treatment. Referral sent to Yvette at [facility] for meet and greet and appt. Pt very aware of triggers and has plans in place to support these. Pt denies any further questions/concerns at this time. ACS team available PRN
[2024-11-20 19:15] VITALS: BP 122/82; PULSE 84; RESP 16; TEMP 36.3; O2SAT 97
[2024-11-21 07:56] VITALS: BP 116/68; PULSE 76; RESP 16; TEMP 36.6; O2SAT 96
[2024-11-21] MEDS: buPROPion HCl XL 150 MG TAB.ER.24H PO (08:26)
--- NOTE | 2024-11-21 10:58 | P.PNIM_ITS ---
Subjective Subjective Date of Service: 11/21/24 Interval History: Patient is seen and examined reporting increased pain and tenderness to his left inner ankle. Patient reports that the pain has progressively gotten worse over the past 2 days to the point where he is having difficulty weight-bearing. He denies any injury, no previous injury, no presence of hardware in that ankle. Denies any fever or chills. Inner ankle is warm, slightly red and tender to touch. He otherwise feels well. Denies any shortness of breath, dizziness lightheadedness or any other concerning symptoms Review of Systems Denies any shortness of breath, chest pain, headaches, dysuria, abdominal pain or discomfort, nausea, vomiting or diarrhea. Denies fever or chills Physical Exam 2 Exam: Exam: CONST: Alert and oriented, in NAD. Well nourished HEENT: Normocephalic, atraumatic, MMM, Eyes clear, Neck supple RESP: Lungs clear, RRR even and regular HEART:,RRR, S1, S2. No edema GI:Abdomen Soft NT, ND. + BS times four :Deferred SKIN: Warm dry and intact, left inner ankle tender to touch warm slightly red. Positive swelling NEURO:CN II-XII Intact bilaterally, Sensation intact. Speech clear PSYCH: Normal affect Vital Signs: Vital Signs: Last Vital Signs Temp 97.8 F 11/21/24 07:56 Pulse 76 11/21/24 07:56 Resp 16 11/21/24 07:56 BP 116/68 11/21/24 07:56 Pulse Ox 96 11/21/24 07:56 O2 Del Method Room Air 11/21/24 07:56 BMI result Body Mass Index 31.3 Objective Data Active Medications Acetaminophen (Acetaminophen 325 Mg Tablet) 650 mg PO Q6H PRN PRN Reason: Headache/Pain, Scale 1-10 Last Admin: 11/21/24 08:47 Dose: 650 mg Documented By: J[place] Al Hydroxide/Mg Hydroxide (Magnesium Hydrox/Alum Hydrox 30 Ml Oral.Susp) 30 ml PO Q6H PRN PRN Reason: Heartburn/Nausea Bupropion HCl (Bupropion Hcl Xl 150 Mg Tab.Er.24h) 150 mg PO DAILY [facility] Last Admin: 11/21/24 08:26 Dose: 150 mg Documented By: J[place] Hydroxyzine HCl (Hydroxyzine Hcl 25 Mg Tablet) 25 mg PO Q6H PRN PRN Reason: mild anxiety Ibuprofen (Ibuprofen 400 Mg Tablet) 400 mg PO Q4H PRN PRN Reason: Pain, Moderate(Pain Scale 4-6) Last Admin: 11/20/24 20:58 Dose: 400 mg Documented By: DARRELL Magnesium Hydroxide (Milk Of Magnesia 30 Ml Oral.Susp) 30 ml PO DAILY PRN PRN Reason: Constipation Naltrexone HCl (Naltrexone Hcl 50 Mg Tablet) 50 mg PO DAILY [facility] Last Admin: 11/21/24 08:26 Dose: 50 mg Documented By: J[place]ICA Nicotine Polacrilex (Nicotine Polacrilex 2 Mg Gum) 4 mg BUCCAL Q2H PRN PRN Reason: Nicotine Cravings Trazodone HCl (Trazodone Hcl 100 Mg Tablet) 100 mg PO BEDTIME MRX1 PRN PRN Reason: Insomnia Last Admin: 11/20/24 22:38 Dose: 100 mg Documented By: DARRELL Labs 11/15/24 08:36 11/16/24 07:32 Assessment and Plan (1) Gout attack: Status: Acute Plan 39-year-old male with no significant past medical history presented to the ED with increased depression and plans to hang himself with a belt. He is admitted here for mood stabilization Depression with suicidal ideation Treatment per psychiatric team Possible Gout Left inner ankle. Uric acid, BMP Treat with prednisone burst for 5 days Thank you for allowing me to participate in the care of this patient. Will follow as needed, please notify medical provider with any changes in condition or concerns. Quality Stroke Does the patient have a stroke diagnosis?: No VTE Prior VTE?: No VTE Risk Level:: Medical - low VTE Device Contraindication: Treatment Not Indicated VTE Drug Contraindication: Treatment Not Indicated
--- NOTE | 2024-11-21 15:02 | HO.PSYCHPN ---
Subjective Subjective Date of Service: 11/21/24 Reason For Visit: SI Subjective Notes: Conditional Voluntary Interim History: Active on unit. social with peers. attending groups. Patient reports feeling good and doing well ; pt stated, I had a good weekend. I plan on going home and following up with therapy . denies SI/HI/VH/AH. Patient reports he plans on following up with outpatient providers. Medication Compliance: Yes Side effects from medications: No Attending Groups: Yes Mental Status Exam Mental Status Exam Narrative: Pt is alert and oriented; behavior is cooperative and calm; dressed in casual attire; mood is described as good ; eye contact appropriate; Speech is normal rate, volume and not pressured; thought process is organized; Thought content is on discharge; denies SI/HI/VH/AH. Diagnostics Vital Signs (24Hr): Vital Signs - 24 hr 11/20/24 19:15 11/21/24 07:56 Temperature 97.4 F 97.8 F Pulse Rate 84 76 Respiratory Rate 16 16 Blood Pressure 122/82 116/68 Pulse Oximetry 97 96 Oxygen Delivery Method Room Air Room Air BMI result Body Mass Index 31.3 Labs 11/15/24 08:36 11/16/24 07:32 Medications Medications Current Medications Acetaminophen (Acetaminophen 325 Mg Tablet) 650 mg PO Q6H PRN PRN Reason: Headache/Pain, Scale 1-10 Last Admin: 11/21/24 08:47 Dose: 650 mg Al Hydroxide/Mg Hydroxide (Magnesium Hydrox/Alum Hydrox 30 Ml Oral.Susp) 30 ml PO Q6H PRN PRN Reason: Heartburn/Nausea Bupropion HCl (Bupropion Hcl Xl 150 Mg Tab.Er.24h) 150 mg PO DAILY [facility] Last Admin: 11/21/24 08:26 Dose: 150 mg Hydroxyzine HCl (Hydroxyzine Hcl 25 Mg Tablet) 25 mg PO Q6H PRN PRN Reason: mild anxiety Ibuprofen (Ibuprofen 400 Mg Tablet) 400 mg PO Q4H PRN PRN Reason: Pain, Moderate(Pain Scale 4-6) Last Admin: 11/20/24 20:58 Dose: 400 mg Magnesium Hydroxide (Milk Of Magnesia 30 Ml Oral.Susp) 30 ml PO DAILY PRN PRN Reason: Constipation Naltrexone HCl (Naltrexone Hcl 50 Mg Tablet) 50 mg PO DAILY [facility] Last Admin: 11/21/24 08:26 Dose: 50 mg Nicotine Polacrilex (Nicotine Polacrilex 2 Mg Gum) 4 mg BUCCAL Q2H PRN PRN Reason: Nicotine Cravings Prednisone (Prednisone 20 Mg Tablet) 40 mg PO DAILY [facility] Stop: 11/27/24 08:59 Trazodone HCl (Trazodone Hcl 100 Mg Tablet) 100 mg PO BEDTIME MRX1 PRN PRN Reason: Insomnia Last Admin: 11/20/24 22:38 Dose: 100 mg Allergies Allergies Allergy/AdvReac Type Severity Reaction Status Date / Time No Known Allergies Allergy Verified 11/15/24 07:38 Assessment & Plan Assessment & Plan (1) MDD (major depressive disorder), recurrent episode: Status: Acute Code(s): F33.9 - Major depressive disorder, recurrent, unspecified (2) PTSD (post-traumatic stress disorder): Status: Acute Code(s): F43.10 - Post-traumatic stress disorder, unspecified (3) Alcohol use disorder: Status: Acute Code(s): F10.90 - Alcohol use, unspecified, uncomplicated (4) Gout attack: Status: Acute Code(s): M10.9 - Gout, unspecified Plan Plan: CV 15 minute safety checks [facility] protocol Obtain collateral Start: Wellbutrin XL 150mg PO daily Referral to outpatient prescriber Encourage groups Discharge planning 11/17: Active on unit. social with peers. attending groups. KELSEA DC'd; pt denies withdrawal symptoms. Patient reports feeling more anxious than depressed today; pt stated, the suicidal thoughts went away this morning. I miss being home . denies SI/HI/VH/AH. Per nursing, slept 7 hours last night. Continue tx plan. 11/18: Continue current regimen and plans. Increase trazodone to 100 mg 11/19: Continue current regimen and plans 11/20: Continue current regimen and plans. 11/21: Active on unit. social with peers. attending groups. Patient reports feeling good and doing well ; pt stated, I had a good weekend. I plan on going home and following up with therapy . denies SI/HI/VH/AH. Patient reports he plans on following up with outpatient providers. Patient educated on: diagnosis and medication risk/benefits Reason for continued inpatient stay Substantial Risk for: stable for discharge Time Spent With Patient Time: Total time managing care of this patient today _20___ minutes.
[2024-11-21 15:32] LABS: Anion Gap 13 (12-20); Blood Urea Nitrogen 12 mg/dL (9-16); Calcium 9.7 mg/dL (8.4-10.2); Carbon Dioxide 27 mmol/L (22-29); Chloride 104 mmol/L (96-108); Creatinine Clr Calc Pharmacy 91.7; Estimated Glomerular Filt Rate > 60; Potassium 4.4 mmol/L (3.3-5.1); Sodium 140 mmol/L (135-145)
[2024-11-21 16:38] LABS: Uric Acid 8.8 mg/dL (3.4-7.0)
[2024-11-21 20:00] VITALS: BP 135/81; PULSE 101; RESP 16; TEMP 36.4; O2SAT 99
[2024-11-22 07:58] VITALS: BP 140/94; PULSE 78; RESP 18; TEMP 36.2; O2SAT 98
[2024-11-22] MEDS: buPROPion HCl XL 150 MG TAB.ER.24H PO (08:31)
--- NOTE | 2024-11-22 08:36 | P.DS_ITS ---
DS: Providers Provider Date of Service: 11/22/24 Date of admission: 11/15/24 12:13 Date of discharge: 11/22/24 Primary care physician: [place] Physician Admitting clinician: Doreen Ramirez Attending physician on admission: Joel Baugh Consults: 11/15/24 17:04 Addiction Medicine Provider Routine Consulting Provider: Addiction Covering Reason for consultation: positive audit c Attending physician on discharge: Joel Baugh Discharging clinician: Doreen Ramirez DS: Diagnosis Discharge Diagnosis (1) MDD (major depressive disorder), recurrent episode: Status: Acute (2) PTSD (post-traumatic stress disorder): Status: Acute (3) Alcohol use disorder: Status: Acute (4) Gout attack: Status: Acute DS: Medications Discharge Medications Home Medications: Previous Rx's ?Medication ?Instructions ?Recorded bupropion HCl 150 mg 24 hr tablet, 150 mg PO DAILY 30 days #30 tabs 11/21/24 extended release naltrexone 50 mg tablet 50 mg PO DAILY 30 days #30 t abs 11/21/24 prednisone 20 mg tablet 40 mg (2 x 20 mg) PO DAILY 4 days 11/21/24 #8 tabs trazodone 100 mg tablet 100 mg PO BEDTIME PRN Insomn ia 7 11/21/24 days #7 tabs Mental Status Exam Mental Status Exam Narrative: Pt is alert and oriented; behavior is cooperative and calm; dressed in casual attire; mood is described as good ; eye contact appropriate; Speech is normal rate, volume and not pressured; thought process is organized; Thought content is on discharge; denies SI/HI/VH/AH. Data Data Completed and Pending Completed studies during hospitalization [Text1]: 11/15/24 11/16/24 11/21/24 08:36 07:32 14:53 WBC 7.1 RBC 5.35 Hgb 16.4 Hct 46.0 MCV 86.0 MCH 30.7 MCHC 35.7 RDW 12.6 Plt Count 321 MPV 9.0 L Immature Gran % (Auto) 0.7 H Neut % (Auto) 59.1 Lymph % (Auto) 31.2 Schleicher % (Auto) 7.7 Eos % (Auto) 0.6 Baso % (Auto) 0.7 Lymph # (Auto) 2.2 Schleicher # (Auto) 0.6 Eos # (Auto) 0.0 Baso # (Auto) 0.1 Abs Immat Gran (auto) 0.05 H Absolute Neuts (auto) 4.2 Absolute Nucleated RBC 0.000 Nucleated RBC % (auto) 0.0 Sodium 144 141 140 Potassium 3.9 3.9 4.4 Chloride 106 102 104 Carbon Dioxide 24 28 27 Anion Gap 18 15 13 BUN 14 15 12 Creatinine 1.04 1.08 1.20 Estim Creat Clear Calc 109.1 101.7 91.7 Estimated GFR > 60 > 60 > 60 Random Glucose 117 H 112 100 Estimat Average Glucose 105 Hemoglobin A1c % 5.3 Uric Acid 8.8 H Calcium 9.0 9.8 D 9.7 Total Bilirubin 0.4 1.3 H AST 41 H 51 H ALT 68 H 70 H Alkaline Phosphatase 77 83 Total Protein 7.6 7.8 Albumin 4.8 4.9 Triglycerides 287 H Cholesterol 134 LDL Cholesterol, Calc 42 HDL Cholesterol 35 L Ethyl Alcohol 262 DS: Summary Hospital Course Hospital Course: Patient is a 30-year-old male with history of MDD who self presented to ER due to suicidal ideation with a plan to hang himself secondary to increased depression. Per crisis report, patient self presented to ER with his mother. He endorsed suicidal ideation with a plan to hang himself with a belt. Denied HI/VH/AH. He reports 1 prior psychiatric admission in 2017 when he had thoughts of self- harm. History of 2 prior suicide attempts via hanging in 2013 and 2015. He reports he did not tell anyone to receive treatment at that time. Patient reports he stopped taking Wellbutrin 2 days ago and also had a break-up with his girlfriend this morning. He does not identify either of those as precipitants. He reports sleep and appetite are fair. Patient has therapist via telehealth through [facility] [employer]. He does not have a medication prescriber. Denies history of PHP admissions. He reports alcohol consumption has been increased recently and has been working with his therapist on this. He denies any other substance use. During admission assessment, patient presents alert and oriented x3. Calm and cooperative. Patient reports feeling depressed; patient stated, I have a general feeling of giving up and not wanting to continue. I was considering killing myself so I came to get help . Patient reports there was no specific trigger that he can think of. He currently denies SI/HI/VH/AH. He reports feeling indifferent about his recent break-up does not feel like this was a precipitant. Patient reports history of 1 prior inpatient psychiatric hospitalization in 2017. He does not have outpatient psychiatric prescriber; however he does have a therapist via telehealth. Patient reports history of taking Wellbutrin and believes it was beneficial. He reports he has not taken it in months due to losing insurance and he was starting to feel better. Patient is requesting to be restarted on Wellbutrin. He reports poor appetite. Patient reports he has been drinking a pt of alcohol for the last 3 days. Denies any other substance use. Alcohol level 262 on arrival. U tox negative for any other substance. Plan: CV 15 minute safety checks [facility] protocol Obtain collateral Start: Wellbutrin XL 150mg PO daily Referral to outpatient prescriber Encourage groups Discharge planning Active on unit. social with peers. attending groups. CIWA DC'd; pt denies withdrawal symptoms. Patient reports feeling more anxious than depressed today; pt stated, the suicidal thoughts went away this morning. I miss being home . denies SI/HI/VH/AH. Per nursing, slept 7 hours last night. Continue tx plan. Continue current regimen and plans. Increase trazodone to 100 mg Active on unit. social with peers. attending groups. Patient reports feeling good and doing well ; pt stated, I had a good weekend. I plan on going home and following up with therapy . denies SI/HI/VH/AH. Patient reports he plans on following up with outpatient providers. Status at Discharge Cognitive/behavioral status at discharge: Patient has insight and demonstrates good judgment in terms of wanting to pursue treatment. Patient has a safety plan that includes presenting to the closest ER or calling 911 if feeling unsafe. Functional status at discharge: independent ambulation Overall status at discharge: patient is back to baseline Time Spent with Patient Time attestation: Total time managing care of this patient today _20___ minutes. Time spent: Less than 30 minutes Discharge Plan Discharge Anticipated Discharge Date/Time: 11/22/24 11:00 Patient Disposition: Home, Self-Care Discharge Diagnosis: MDD, PTSD, Alcohol use d/o Referrals: Geovanna Alberto (Therapy) [Other] - 1 Week Referral Note: *Please follow up with your therapist to schedule your next appointment. Psychiatry [Other] - 1 Week Referral Note: *You can present to the clinic above, Wednesday through Wednesday during the hours of 8am and 8pm, in order to obtain an outpatient psychiatric medication prescriber. [facility] [Provider Group] - 1 Week Referral Note: 11-22-24 [facility] was added to patients chart.. Please call [phone] to schedule your follow up appt within 7-10 days of discharge. No release or pcp on file. Discharge Medications: New naltrexone 50 mg Tablet 50 mg PO DAILY 30 Days Qty: 30 0RF bupropion HCl 150 mg Tablet Extended Release 24 Hr 150 mg PO DAILY 30 Days Qty: 30 0RF trazodone 100 mg Tablet 100 mg PO BEDTIME PRN (Reason: Insomnia) 7 Days Qty: 7 0RF prednisone 20 mg Tablet 40 mg PO DAILY 4 Days Qty: 8 0RF Discontinued Wellbutrin XL 300 mg PO DAILY Patient Comments: Patient has not picked up prescription since December 2023. Discharge Orders: Discharge Order (Routine); Ordered 11/22/24 Ordered By: Doreen Ramirez Diet: Regular diet Activity on Discharge: As tolerated Stand Alone Forms: Patient Portal Discharge page, Community Support Print Language: Hungarian Care Plan Goals: Maintain mood and safe behaviors Take medications as prescribed Continue to pursue sobriety Practice coping skills Continue with outpatient providers and reach out to them as needed Health Concerns: Mood stability and behaviors Sobriety Plan of Treatment: Follow up with your PCP, psychiatric provider and other outpatient providers regarding above concerns Take medications as prescribed Assessment: Patient has insight and demonstrates good judgment in terms of wanting to pursue treatment. Patient has a safety plan that includes presenting to the closest ER or calling 911 if feeling unsafe.
== END 2024-11-22 11:03 | disposition home or self-care (01) | DRG 885 ==
LOC: HO.ED 12:53 → HO.PADLT16 13:30
PROVIDERS: Nurse Practitioner Family; Admitting Provider Registered Nurse; Emergency Provider Emergency Medicine; Responsible Provider Registered Nurse; Visit Provider Psychiatry & Neurology Psychiatry
DX: F33.9 Major depressive disorder, recurrent, unspecified (principal); R45.851 Suicidal ideations; Y90.8 Blood alcohol level of 240 mg/100 ml or more; F43.10 Post-traumatic stress disorder, unspecified; M10.9 Gout, unspecified; F10.90 Alcohol use, unspecified, uncomplicated; Z79.899 Other long term (current) drug therapy
CPT/HCPCS: 36415; 80048; 80053; 80061; 80307; 81003; 83036; 84550; 85025; 90656; 93005; 99285; S9485

== ENCOUNTER → 2024-11-15 09:40 | Outpatient (BNV) | payer OTHER, SELFPAY | PROVIDERS: Emergency Provider Emergency Medicine; Visit Provider Internal Medicine Cardiovascular Disease | DX: Z13.6 Encounter for screening for cardiovascular disorders (principal) | CPT/HCPCS: 93010 ==

== ENCOUNTER → 2024-11-15 12:13 | Outpatient (BNV) | payer OTHER, SELFPAY | PROVIDERS: Admitting Provider Registered Nurse; Emergency Provider Emergency Medicine; Visit Provider Nurse Practitioner Family | DX: M10.9 Gout, unspecified (principal) | CPT/HCPCS: 99221; 99231 ==

== ENCOUNTER → 2024-11-15 12:13 | Outpatient (BNV) | payer OTHER, SELFPAY | PROVIDERS: Admitting Provider Registered Nurse; Emergency Provider Emergency Medicine; Responsible Provider Registered Nurse; Visit Provider Nurse Practitioner Psychiatric/Mental Health | DX: F33.2 Major depressive disorder, recurrent severe without psychotic features (principal); F43.11 Post-traumatic stress disorder, acute; F10.90 Alcohol use, unspecified, uncomplicated | CPT/HCPCS: 90792; 99231; 99232; 99499 ==

== ENCOUNTER 2024-11-22 11:15 | Outpatient (AMB) | payer OTHER, SELFPAY ==
--- NOTE | 2024-11-22 11:24 | MHC.OFFVIS ---
Vital Signs 11/22/24 11:25 Height 5 ft 9 in Weight 217 lb BMI 32.0 BP 122/78 Pulse 100 Pulse Oximetry (%) 96 Intake Visit Reasons: MAT intake Allergies No Known Allergies Allergy (Verified 11/22/24 11:26) Medication List - Last Reconciled 11/22/24 by MELANIE KaufmanC bupropion HCl XL 150 mg PO DAILY 30 days naltrexone 50 mg PO DAILY 30 days prednisone 40 mg (2 x 20 mg) PO DAILY 4 days trazodone 100 mg PO BEDTIME PRN 7 days HPI Comments Details: A 39-year-old male presents for a MAT intake r/t AUD post inpatient discharge. Reports no alcohol consumption since inpatient admission November 15 is motivated to continue abstaining from alcohol with the assistance of naltrexone. The patient is receptive to referrals for peer organ recovery coordinator and other area resources to assist in recovery process. [facility] Social History Household Members: None Housing: House Do you presently have visiting nurse or other home services: No Patient Tobacco Use Status: Never used Tobacco service: No Sexual orientation: Straight/Heterosexual Physical Exam Vital Signs: Last Vital Signs Pulse 100 11/22/24 11:25 BP 122/78 11/22/24 11:25 Pulse Ox 96 11/22/24 11:25 BMI result Body Mass Index 32.0 Assessment & Plan Assessment & Plan (1) Alcohol use disorder: Code(s): F10.90 - Alcohol use, unspecified, uncomplicated Category: Medical Plan The plan of care is to continue with naltrexone 50 mg daily. Start on thiamine 100 mg and folic acid 1 mg daily. Education and information including worksheet given for local community resources. parole agent to complete referral for a organ recovery coordinator. Reports has contact information to call a psychiatrist located in [place] to initiate mental health services. Follow-up in 1 month or sooner if needed. Medications: New thiamine mononitrate (vit B1) Take 1 tablet daily 100 mg PO DAILY 30 tabs 1RF 30 days folic acid Take 1 tablet daily 1 mg PO DAILY 30 tabs 1RF 30 days Patient Instructions: - Continue with naltrexone as prescribed by inpatient provider. - Start on thiamine and folic acid as prescribed. - Follow-up with psychiatrist to initiate services for mental health. - Follow-up in 1 month or sooner if needed. - Call with questions, concerns, or to report side effects/new onset of symptoms to [facility]. - The patient verbalized understanding and agreed with plan of care. Coding Level of Care Code New Pt Level 3 (41023) Diagnoses Alcohol use disorder F10.90
[2024-11-22 11:25] VITALS: BP 122/78; PULSE 100; O2SAT 96; BMI 32.0
--- OUTSIDE RECORDS SUMMARY | 2024-11-22 13:53 | XMS_ITS | Clinical Summary ---
Author Organization [facility] ity Address [id number] [place] [id number] Care Team Providers Care Methane Gas Collection System Operator Name Role Phone Unavailable Primary Care Provider Unavailabl e Social History Tobacco Use Types Packs/Day Years Used Date Smoking Tobacco: Never Assessed Sex and Gender Information Value Date Recorded Sex Assigned at Not on file Legal Sex Male 12:59 PM EST Gender Identity Not on file Sexual Orientation Not on file Plan of Treatment Health Maintenance Due Date Last Done Comments DTaP,Tdap,and Td Vaccines (1 - Tdap) 2004 Hepatitis B Vaccines (1 of 3 - 19+ 3-dose series) 2004 HPV Vaccines (1 - 3-dose SCD M series) 2012 Depression Screening 02/09/2024 COVID-19 Vaccine (1 - 2023-2 5 season) 2024 Influenza Vaccine (#1) 2024 RSV Immunization Adult Patie nts (1 - 1-dose 75+ series) 2060 HIB Vaccines Aged Out No longer eligi ble based on patient's age to complete this topic Hepatitis A Vaccines Aged Out No long er eligible based on patient's age to complete this topic IPV Vaccines Aged Out No longer eligi ble based on patient's age to complete this topic MMR Vaccines Aged Out No longer eligi ble based on patient's age to complete this topic Meningococcal ACWY Vaccine Aged Out N o longer eligible based on patient's age to complete this topic Meningococcal B Vaccine Aged Out No l onger eligible based on patient's age to complete this topic Pneumococcal Vaccine: Pediat rics (0 to 5 Years) and At-Risk Patients (6 to 49 Years) Aged Out No longer eligible b ased on patient's age to complete this topic RSV Immunization Patients Un cecelia 20 months Aged Out No longer eligible b ased on patient's age to complete this topic Varicella Vaccines Aged Out No longer eligible based on patient's age to complete this topic
--- OUTSIDE RECORDS SUMMARY | 2024-11-22 13:53 | XMS_ITS | Clinical Summary ---
Author Organization [facility] Address [address] [place] [address] Care Team Providers Care Head Mixer Name Role Phone Unavailable Primary Care Provider Unavailabl e Allergies No known active allergies Medications No known medications Social History Tobacco Use Types Packs/Day Years Used Date Smoking Tobacco: Every Day Cigarettes Alcohol Use Standard Drinks/Week Comments Yes 0 (1 standard drink = 0.6 oz pur e alcohol) daily Sex and Gender Information Value Date Recorded Sex Assigned at Not on file Gender Identity Not on file Sexual Orientation Not on file Last Filed Vital Signs Vital Sign Reading Time Taken Comments Blood Pressure 130/86 12/01/2016 7:46 PM EDT Pulse 103 12/01/2016 7:46 PM EDT Temperature 36.8 C (98.2 F) 12/01/2016 7:46 PM EDT Respiratory Rate 20 12/01/2016 7:46 PM EDT Oxygen Saturation 99% 12/01/2016 7:46 PM EDT Inhaled Oxygen Concentration - - Weight 90.7 kg (200 lb) 12/01/2016 2:14 PM EDT Height 177.8 cm (5' 10 ) 12/01/2016 2:14 PM EDT Body Mass Index 28.7 12/01/2016 2:14 PM EDT Plan of Treatment Not on file
== END 2024-11-22 11:37 | disposition home or self-care (01) ==
LOC: HO.HCC 11:15
PROVIDERS: Visit Provider Clinical Nurse Specialist Psychiatric/Mental Health
DX: F10.90 Alcohol use, unspecified, uncomplicated (principal)
CPT/HCPCS: 99203

== ENCOUNTER 2024-12-20 16:35 | Outpatient (AMB) | payer OTHER, SELFPAY ==
[2024-12-20 16:41] VITALS: BP 118/76; PULSE 96; O2SAT 98
--- NOTE | 2024-12-20 16:41 | MHC.OFFVIS ---
Vital Signs 12/20/24 16:41 BP 118/76 Pulse 96 Pulse Oximetry (%) 98 Intake Visit Reasons: MAT Allergies No Known Allergies Allergy (Verified 12/20/24 16:42) HPI Comments Details: A 39 year old male presents for a follow up visit r/t AUD and reports 30 days of sobriety with the assistance of naltrexone. Denies use of opiates, alcohol, and other substances. Reports connected with a psychiatrist and had initial evaluation completed. Engages in conversation re: looking forward to continuing in sobriety process with assitance of support services. [facility] Medical History Suicidal ideation Social History Household Members: None Housing: House Do you presently have visiting nurse or other home services: No Patient Tobacco Use Status: Never used Tobacco service: No Sexual orientation: Straight/Heterosexual Review of Systems Const All systems reviewed & are unremarkable except as noted in HPI and below Physical Exam Vital Signs: Last Vital Signs Pulse 96 12/20/24 16:41 BP 118/76 12/20/24 16:41 Pulse Ox 98 12/20/24 16:41 Const General: cooperative Assessment & Plan Assessment & Plan (1) Alcohol use disorder, moderate, in early remission: Code(s): F10.21 - Alcohol dependence, in remission Category: Medical Plan The plan of care is to continue with naltrexone tablets 50 mg daily, thiamine 100 mg, folic acid 1 mg daily. Follow up in 3 months or sooner if needed. Medications: Changed From naltrexone 50 mg PO DAILY 30 days 30 tabs 0RF To naltrexone Take 1 tablet daily 50 mg PO DAILY 30 tabs 3RF 30 days From thiamine mononitrate (vit B1) Take 1 tablet daily 100 mg PO DAILY 30 days 30 tabs 1RF To thiamine mononitrate (vit B1) Take 1 tablet daily 100 mg PO DAILY 90 tabs 1RF 90 days Patient Instructions: - Continue with naltrexone, thiamine, and folic acid as prescribed. - Follow up in 3 months or sooner if needed. - Call with questions, concerns, or to report side effects/new onset of symptoms to [facility]. - The patient verbalized understanding and agreed with plan of care. Coding Level of Care Code Est Pt Level 3 (84333) Diagnoses Alcohol use disorder, moderate, in early remission F10.21
--- OUTSIDE RECORDS SUMMARY | 2024-12-20 19:07 | XMS_ITS | Encounter Summary ---
Author Organization [address] [address] Care Team Providers Care Foam Molder Name Role Phone ToyahMarilin curtis WILEY Primary Care Provider Marilin Shah NETWORKING ENGINEER Unavailable [phone] Marilin Shah NETWORKING ENGINEER Unavailable Encounter Details Date Type Department Care Team (Late st Contact Info) Description 07/15/2018 Scanned Document [facility] [address] [place] [address] Marilin ShahWILEY [address] [place] [address] Social History Tobacco Use Types Packs/Day Years Used Date Smoking Tobacco: Never Smokeless Tobacco: Former Comments:never a true smoker has had a few in his lifetime Alcohol Use Standard Drinks/Week Comments Yes 1 (1 standard drink = 0.6 oz pur e alcohol) Sex and Gender Information Value Date Recorded Sex Assigned at Male 12/24/2022 2:19 PM EST Legal Sex Male 11:00 AM EDT Gender Identity Male 12/24/2022 2:19 PM EST Sexual Orientation Heterosexual (straight) 12/24 2:19 PM EST documented as of this encounter Plan of Treatment Not on file documented as of this encounter Visit Diagnoses Not on filedocumented in this encounter Care Teams Foam Molder Relationship Specialty Start Date End Date Marilin ShahWILEY [address] [place] [address] PCP - General Family Medicine 05/07/17 Marilin Shah APRN [address] [address] PCP - [place] [employer] Attributed 02/08/21 05/09/23 Marilin Shah APRN [address] [address] PCP - [place] [employer] Attributed 06/09/23 09/08/23 documented as of this encounter
--- OUTSIDE RECORDS SUMMARY | 2024-12-20 19:07 | XMS_ITS | Clinical Summary ---
Author Organization [facility] ity Address [address] [place] [phone] Care Team Providers Care Customer Service Analyst Name Role Phone Unavailable Primary Care Provider [...] Depression Screening 02/09/2024 COVID-19 Vaccine (1 - 2024-2 6 season) 2024 Influenza Vaccine (#1) 2024 RSV [...]
--- OUTSIDE RECORDS SUMMARY | 2024-12-20 19:07 | XMS_ITS | Encounter Summary ---
Author Organization [facility] Address [address] [place] [address] Care Team Providers Care Help Desk Representative Name Role Phone Marilin Shah WILEY Primary Care Provider [phone] Marilin Shah WILEY Unavailable [phone] Marilin Shah MGMT SPECIALIST Unavailable [phone] Encounter Details Date Type Department Care Team (Late st Contact Info) Description 07/24/2022 Scanned Document [facility] SCAN Primary Care, Scan Social History Tobacco Use Types Packs/Day Years Used Date Smoking Tobacco: Never Smokeless Tobacco: Former Comments:never a true smoker has had a few in his lifetime Alcohol Use Standard Drinks/Week Comments Yes 1 (1 standard drink = 0.6 oz pur e alcohol) AUDIT-C Answer Date Recorded Q1: How often do you have a drink containing alc ohol? 2-3 times a week 01/28/2022 Q2: How many drinks containi ng alcohol do you have on a typical day when you are drinking? 5 or 6 01/28/2022 Q3: How often do you have si x or more drinks on one occasion? Weekly 01/28/2022 PHQ-2 Answer Date Recorded PHQ-2 Total Score 2 06/09/2022 Sex and Gender Information Value Date Recorded Sex Assigned at Male 12/24/2022 2:19 PM EST Legal Sex Male 11:00 AM EDT Gender Identity Male 12/24/2022 2:19 PM EST Sexual Orientation Heterosexual (straight) 12/24 2:19 PM EST COVID-19 Exposure Response Date Recorded In the last 10 days, have yo u been in contact with someone who was confirmed or suspected to have Coronavirus/COVID-19? No / Unsure 07/07/2022 7:54 AM EDT documented as of this encounter Plan of Treatment Not on file documented as of this encounter Visit Diagnoses Not on filedocumented in this encounter Care Teams Help Desk Representative Relationship Specialty Start Date End Date Marilin Shah WILEY [place] [address] [place] [address] PCP - General Family Medicine 05/07/17 Marilin Shah APRN [address] [place] [address] PCP - [place] [employer] Attributed 02/08/21 05/09/23 Marilin Shah APRN [address] [facility] [address] [place] [address] PCP - [place] [employer] Attributed 06/09/23 09/08/23 documented as of this encounter
--- OUTSIDE RECORDS SUMMARY | 2024-12-20 19:07 | XMS_ITS | Encounter Summary ---
Author Organization [facility] Address [address] [place] [address] Care Team Providers Care Metal Cut Off Saw Tender Name Role Phone Marilin Shah APRN Primary Care Provider [phone] Marilin Shah APRN Unavailable [phone] Encounter Details Date Type Department Care Team ([facility] st Contact Info) Description 07/02/2023 Scanned Document [facility] PRIMARY CARE SCAN Primary Care, Scan Social [...] PHQ-2 Answer Date Recorded PHQ-2 Total Score 6 05/28/2023 Sex and Gender Information Value Date Recorded Sex Assigned at Male 12/24/2022 2:19 PM EST Legal Sex Male 11:00 AM EDT Gender Identity Male 12/24/2022 2:19 PM EST Sexual Orientation Heterosexual (straight) 12/24 2:19 PM EST documented as of this encounter Plan of Treatment Not on file documented as of this encounter Visit Diagnoses Not on filedocumented in this encounter Care Teams Metal Cut Off Saw Tender Relationship Specialty Start Date End Date Marilin Shah APRN [address] [place] [address] PCP - General Family Medicine 05/07/17 Marilin Shah APRN [address] [facility] [address] [place] [address] PCP - [place] [employer] Attributed 06/09/23 09/08/23 documented as of this encounter
--- OUTSIDE RECORDS SUMMARY | 2024-12-20 19:07 | XMS_ITS | Encounter Summary ---
Author Organization [facility] Address [address] [place] [id number] Care Team Providers Care Bulk Station Agent Name Role Phone Marilin Shah APRN Primary Care Provider [phone] Marilin Shah Sai JAMA Unavailable [phone] Encounter Details Date Type Department Care Team (Late st Contact Info) Description 08/11/2023 Scanned Document [facility] [address] [place] [id number] PabloMarilin APRN [address] [place] [address] Social History Tobacco Use Types Packs/Day Years [...] on filedocumented in this encounter Care Teams Bulk Station Agent Relationship Specialty Start Date End Date Marilin Shah APRN [address] [facility] [address] [place] [address] PCP - General Family Medicine 05/07/17 Marilin Shah APRN [address] [facility] [address] [place] [address] PCP - [place] [employer] Attributed 06/09/23 09/08/23 documented as of this encounter
--- OUTSIDE RECORDS SUMMARY | 2024-12-20 19:07 | XMS_ITS | Encounter Summary ---
Author Organization [facility] Address [address] [place] [address] Care Team Providers Care Active Directory Architect Name Role Phone StrattonMarilin curtis Sai JAMA Primary Care Provider [phone] Marilin Shah WILEY Unavailable [phone] Marilin Shah TRAINING COORDINATOR Unavailable [phone] Encounter Details Date Type Department Care Team (Late st Contact Info) Description 01/13/2023 Scanned Document [facility] PRIMARY CARE SCAN Primary Care, Scan [...] PHQ-2 Answer Date Recorded PHQ-2 Total Score 5 12/24/2022 Sex and Gender Information Value Date Recorded Sex Assigned at Male 12/24/2022 2:19 PM EST Legal Sex Male 11:00 AM EDT Gender Identity Male 12/24/2022 2:19 PM EST Sexual Orientation Heterosexual (straight) 12/24 2:19 PM EST documented as of this encounter Plan of Treatment Not on file documented as of this encounter Visit Diagnoses Not on filedocumented in this encounter Care Teams Active Directory Architect Relationship Specialty Start Date End Date Marilin Shah APRN [address] [facility] [address] [place] [address] PCP - General Family Medicine 05/07/17 Marilin Shah APRN [address] [facility] [address] [place], [place] [id number] PCP - [place] Commercial Attributed 02/08/21 05/09/23 Marilin Shah APRN [address] [facility] [address] [place] [address] PCP - [place] Commercial Attributed 06/09/23 09/08/23 documented as of this encounter
--- OUTSIDE RECORDS SUMMARY | 2024-12-20 19:07 | XMS_ITS | Encounter Summary ---
Author Organization [facility] Address [address] [place] [address] Care Team Providers Care Chef Instructor Name Role Phone Marilin Shah WILEY Primary Care Provider Marilin Shah QUALITY ASSURANCE TECH Unavailable [phone] Marilin Shah QUALITY ASSURANCE TECH Unavailable [phone] Encounter Details Date Type Department Care Team (Late st Contact Info) Description 05/29/2022 Scanned Document [facility] [address] [facility] [address] [place] [address] Marilin Shah QUALITY ASSURANCE TECH [address] [place] [address] Social History Tobacco Use Types Packs/Day Years [...] PHQ-2 Answer Date Recorded PHQ-2 Total Score 0 01/28/2022 Sex and Gender Information Value Date Recorded [...] suspected to have Coronavirus/COVID-19? No / Unsure 05/26/2022 1:24 PM EDT documented as of this encounter Plan of Treatment Not on file documented as of this encounter Visit Diagnoses Not on filedocumented in this encounter Care Teams Chef Instructor Relationship Specialty Start Date End Date Marilin Shah APRN [address] [place] [address] PCP - General Family Medicine 05/07/17 Marilin Shah APRN [address] [facility] [address] [place] [address] PCP - [place] Commercial Attributed 02/08/21 05/09/23 Marilin Shah APRN [address] [facility] [address] [place] [address] PCP - [place] Commercial Attributed 06/09/23 09/08/23 documented as of this encounter
--- OUTSIDE RECORDS SUMMARY | 2024-12-20 19:07 | XMS_ITS | Encounter Summary ---
Author Organization [facility] Address [address] [place] [address] Care Team Providers Care Vocal Artist Name Role Phone Marilin Shah WILEY Primary Care Provider Marilin Shah WILEY Unavailable [phone] Marilin Shah WILEY Unavailable Encounter Details Date Type Department Care Team (Late st Contact Info) Description 09/05/[address]21 [address]anned [address] [facility] PRIMARY CARE SCAN Marilin ShahWILEY [address] [place] [address] Social History Tobacco Use Types Packs/Day Years Used Date Smoking Tobacco: Never Smokeless Tobacco: Former Comments:never a true smoker has had a few in his lifetime Alcohol Use Standard Drinks/Week Comments Yes 1 (1 standard drink = 0.6 oz pur e alcohol) PHQ-2 Answer Date Recorded PHQ-2 Total Score 1 09/02/2021 Sex and Gender Information Value Date Recorded Sex Assigned at Male 12/24/2022 2:19 PM EST Legal Sex Male 11:00 AM EDT Gender Identity Male 12/24/2022 2:19 PM EST Sexual Orientation Heterosexual (straight) 12/24 2:19 PM EST documented as of this encounter Plan of Treatment Not on file documented as of this encounter Visit Diagnoses Not on filedocumented in this encounter Care Teams Vocal Artist Relationship Specialty Start Date End Date Marilin ShahWILEY [address] [place] [address] PCP - General Family Medicine 05/07/17 Marilin Shah APRN [address] [id number] PCP - [place] Commercial Attributed 02/08/21 05/09/23 Marilin Shah APRN [address] [id number] PCP - [place] Commercial Attributed 06/09/23 09/08/23 documented as of this encounter
--- OUTSIDE RECORDS SUMMARY | 2024-12-20 19:07 | XMS_ITS | Encounter Summary ---
Author Organization [facility] Address [address] [place] [address] Care Team Providers Care Traffic Engineering Technician Name Role Phone Marilin Shah APRN Primary Care Provider [phone] Pablo Marilin Gibbs APRN Unavailable [phone] Encounter Details Date Type Department Care Team (Late st Contact Info) Description 08/24/2023 Scanned Document [facility] [address] [place] [id number] PabloMarilin APRN [address] [place] [address] Social History Tobacco Use Types Packs/Day Years [...] on filedocumented in this encounter Care Teams Traffic Engineering Technician Relationship Specialty Start Date End Date Marilin Shha APRN [address] [facility] [address] [place] [address] PCP - General Family Medicine 05/07/17 Marilin Shah APRN [address] [facility] [address] [place] [address] PCP - [place] Commercial Attributed 06/09/23 09/08/23 documented as of this encounter
--- OUTSIDE RECORDS SUMMARY | 2024-12-20 19:07 | XMS_ITS | Encounter Summary ---
Author Organization [facility] Address [address] [place] [address] Care Team Providers Care Maintenance Team Member Name Role Phone Marilin Shah APRN Primary Care Provider [phone] Marilin Shah APRN Unavailable [phone] Encounter Details Date Type Department Care Team ([facility] st Contact Info) Description 06/01/2023 Scanned Document [facility] PRIMARY CARE SCAN Primary Care, Scan Social [...] on filedocumented in this encounter Care Teams Maintenance Team Member Relationship Specialty Start Date End Date Marilin Shah APRN [address] [place] [address] PCP - General Family Medicine 05/07/17 Marilin Shah APRN [address] [facility] [address] [place] [address] PCP - [place] Commercial Attributed 06/09/23 09/08/23 documented as of this encounter
--- OUTSIDE RECORDS SUMMARY | 2024-12-20 19:07 | XMS_ITS | Encounter Summary ---
Author Organization [facility] Address [address] [place] [address] Care Team Providers Care Chief Accountant Name Role Phone WeesatcheMarilin curtis WILEY Primary Care Provider [phone] Marilin Shah WILEY Unavailable [phone] Marilin Shah ONLINE PRODUCER Unavailable [phone] Encounter Details Date Type Department Care Team (Late st Contact Info) Description 09/21/2022 Scanned Document [facility] PRIMARY CARE SCAN Primary Care, Scan Social [...] on filedocumented in this encounter Care Teams Chief Accountant Relationship Specialty Start Date End Date Marilin Shah APRN [address] [facility] [address] [place] [address] PCP - General Family Medicine 05/07/17 Marilin Shah APRN [address] [facility] [address] [place], [place] [id number] PCP - [place] Commercial Attributed 02/08/21 05/09/23 Marilin Shah APRN [address] [facility] [address] [place] [address] PCP - [place] Commercial Attributed 06/09/23 09/08/23 documented as of this encounter
--- OUTSIDE RECORDS SUMMARY | 2024-12-20 19:07 | XMS_ITS | Encounter Summary ---
Author Organization [address] [address] Care Team Providers Care Orchestra Teacher Name Role Phone Pablo Marilin Sai JAMA Primary Care Provider [phone] Marilin Shah PEDIATRIC REGISTERED NURSE Unavailable [phone] Marilin Shah PEDIATRIC REGISTERED NURSE Unavailable Encounter Details Date Type Department Care Team (Late st Contact Info) Description 09/18/2021 Scanned Document [facility] [address] [place] [address] Marilin Shah WILEY Gibbs [address] [facility] [address] [place] [address] Social History Tobacco Use Types Packs/Day Years [...] on filedocumented in this encounter Care Teams Orchestra Teacher Relationship Specialty Start Date End Date Pablo Marilin Gibbs APRN [address] [place] [address] PCP - General Family Medicine 05/07/17 Marilin Shah APRN [address] [place] [address] PCP - [place] Commercial Attributed 02/08/21 05/09/23 Marilin Shah APRN [address] [place] [address] PCP - [place] Commercial Attributed 06/09/23 09/08/23 documented as of this encounter
--- OUTSIDE RECORDS SUMMARY | 2024-12-20 19:07 | XMS_ITS | Clinical Summary ---
Author Organization [facility] Address [address] [place] [address] Care Team Providers Care Assembly Manager Name Role Phone Unavailable Primary Care Provider [...]
--- OUTSIDE RECORDS SUMMARY | 2024-12-20 19:07 | XMS_ITS | Encounter Summary ---
Author Organization [facility] Address [address] [place] [address] Care Team Providers Care Audio/Visual Manager Name Role Phone WilliamsMarilin curtis WILEY Primary Care Provider [phone] Marilin Shah WILEY Unavailable [phone] Marilin Shah PRESS MACHINE FEEDER Unavailable [phone] Encounter Details Date Type Department Care Team (Late st Contact Info) Description 02/11/2023 Scanned Document [facility] PRIMARY CARE SCAN Primary Care, Scan [...] on filedocumented in this encounter Care Teams Audio/Visual Manager Relationship Specialty Start Date End Date Marilin Shah APRN [address] [facility] [address] [place] [address] PCP - General Family Medicine 05/07/17 Marilin Shah APRN [address] [facility] [address] [place], [place] [phone] PCP - [place] Commercial Attributed 02/08/21 05/09/23 Marilin Shah APRN [address] [facility] [address] [place] [address] PCP - [place] Commercial Attributed 06/09/23 09/08/23 documented as of this encounter
--- OUTSIDE RECORDS SUMMARY | 2024-12-20 19:07 | XMS_ITS | Encounter Summary ---
Author Organization [address] [address] Care Team Providers Care Marble Machine Tender Name Role Phone SolomonsMarilin curtis WILEY Primary Care Provider [phone] Marilin Shah HAZMAT CDL DRIVER Unavailable [phone] Marilin Shah HAZMAT CDL DRIVER Unavailable [phone] Encounter Details Date Type Department Care Team (Late st Contact Info) Description 10/12/2018 Scanned Document [facility] [address] [place] [address] Marilin ShahWILEY [address] [place] [address] Social History Tobacco Use Types Packs/Day Years [...] on filedocumented in this encounter Care Teams Marble Machine Tender Relationship Specialty Start Date End Date Marilin ShahWILEY [address] [place] [address] PCP - General Family Medicine 05/07/17 Marilin Shah APRN [address] [address] PCP - [place] Commercial Attributed 02/08/21 05/09/23 Marilin Shah APRN [address] [address] PCP - [place] Commercial Attributed 06/09/23 09/08/23 documented as of this encounter
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
--- OUTSIDE RECORDS SUMMARY | 2024-12-20 19:07 | XMS_ITS | Encounter Summary ---
Author Organization [facility] Address [address] [place] [address] Care Team Providers Care Pitting Machine Operator Name Role Phone HoustonMarilin curtis Sai JAMA Primary Care Provider [phone] Marilin Shah WILEY Unavailable [phone] Marilin Shah CONCIERGE MANAGER Unavailable [phone] Encounter Details Date Type Department Care Team (Late st Contact Info) Description 12/30/2022 Scanned Document [facility] PRIMARY CARE SCAN Primary Care, Scan [...] on filedocumented in this encounter Care Teams Pitting Machine Operator Relationship Specialty Start Date End Date Marilin Shah APRN [address] [facility] [address] [place] [address] PCP - General Family Medicine 05/07/17 Marilin Shah APRN [address] [facility] [address] [place], [place] [id number] PCP - [place] Commercial Attributed 02/08/21 05/09/23 Marilin Shah APRN [address] [facility] [address] [place] [address] PCP - [place] Commercial Attributed 06/09/23 09/08/23 documented as of this encounter
--- OUTSIDE RECORDS SUMMARY | 2024-12-20 19:07 | XMS_ITS | Encounter Summary ---
Author Organization [address] [address] Care Team Providers Care Mail Distribution Scheme Examiner Name Role Phone Marilin Shah WILEY Primary Care Provider Marilin Shah SUPERVISOR DELIVERY DEPARTMENT Unavailable [phone] Marilin Shah SUPERVISOR DELIVERY DEPARTMENT Unavailable Encounter Details Date Type Department Care Team (Late st Contact Info) Description 08/25/2019 Scanned Document [facility] [address] [facility] [address] [place] [address] Marilin Shah SUPERVISOR DELIVERY DEPARTMENT [address] [place] [address] Social History Tobacco Use Types Packs/Day Years Used Date Smoking Tobacco: Never Smokeless Tobacco: Former Comments:never a true smoker has had a few in his lifetime Alcohol Use Standard Drinks/Week Comments Yes 1 (1 standard drink = 0.6 oz pur e alcohol) PHQ-2 Answer Date Recorded PHQ-2 Total Score 0 07/26/2019 Sex and Gender Information Value Date Recorded Sex Assigned at Male 12/24/2022 2:19 PM EST Legal Sex Male 11:00 AM EDT Gender Identity Male 12/24/2022 2:19 PM EST Sexual Orientation Heterosexual (straight) 12/24 2:19 PM EST COVID-19 Exposure Response Date Recorded In the last month, have you been in contact with someone who was confirmed or suspected to have Coronavirus / COVID-19? No / Unsure 08/24/2019 11:16 AM EDT documented as of this encounter Plan of Treatment Not on file documented as of this encounter Visit Diagnoses Not on filedocumented in this encounter Care Teams Mail Distribution Scheme Examiner Relationship Specialty Start Date End Date Marilin Shah APRN [address] [place] [address] PCP - General Family Medicine 05/07/17 Marilin Shah APRN [address] [facility] [address] [place] [address] PCP - [employer] Attributed 02/08/21 05/09/23 Marilin Shah APRN [address] [address] PCP - [employer] Attributed 06/09/23 09/08/23 documented as of this encounter
== END 2024-12-20 17:13 | disposition home or self-care (01) ==
LOC: HO.HCC 16:35
PROVIDERS: Visit Provider Clinical Nurse Specialist Psychiatric/Mental Health
DX: F10.21 Alcohol dependence, in remission (principal)
CPT/HCPCS: 99213